=== PATIENT | female | born 1970 | race Caucasian/White ===

== ENCOUNTER 2020-03-01 08:17 | Outpatient (REF) | payer OTHER, SELFPAY ==
--- NOTE | 2020-03-01 | US_ITS ---
EXAMINATION: US ABDOMEN COMPLETE CLINICAL INFORMATION: Gallstones without cholecystitis. Elevated LFTs. COMPARISON: None. TECHNIQUE: Real-time imaging of the abdominal viscera. FINDINGS: PANCREAS: Normal. ABDOMINAL AORTA: The visualized proximal segment is normal in caliber. INFERIOR VENA CAVA: Visualized portions are normal. LIVER: There is diffuse increased liver parenchymal echogenicity, consistent with hepatic steatosis. The liver is normal in contour. The liver is slightly enlarged, right lobe measuring 19 cm the left lobe measuring 12 cm in length. No focal liver lesion. No biliary ductal dilatation. GALLBLADDER: Normal. The gallbladder is physiologically distended without evidence of stones, sludge, polyps, wall thickening or pericholecystic fluid. COMMON BILE DUCT: Normal in caliber measuring 0.3 cm in diameter. RIGHT KIDNEY: No hydronephrosis. No renal calculi or focal parenchymal lesions. The kidney measures 10.4 cm in maximum dimension. LEFT KIDNEY: No hydronephrosis. No renal calculi or focal parenchymal lesions. The kidney measures 9.6 cm in maximum dimension. SPLEEN: Normal. The spleen measures 9.4 cm in maximum dimension. FREE FLUID: None. IMPRESSION: Slightly enlarged echogenic liver probably representing fatty infiltration. Normal-appearing gallbladder. No gallstones seen.
== END 2020-03-01 08:18 | disposition home or self-care (01) ==
LOC: HO.US 08:17
PROVIDERS: PCP Internal Medicine; Visit Provider Internal Medicine
DX: K80.20 Calculus of gallbladder without cholecystitis without obstruction (principal); R94.5 Abnormal results of liver function studies
CPT/HCPCS: 76700

== ENCOUNTER 2020-03-26 09:09 | Emergency (ER) | payer OTHER, SELFPAY ==
[2020-03-26 09:15] VITALS: PULSE 88; RESP 18; TEMP 37.6; O2SAT 99; BMI 26.5
--- NOTE | 2020-03-26 09:30 | ECG_ITS ---
Test Reason : NEAR SYNCOPE Blood Pressure : / mmHG Vent. Rate : 078 BPM Atrial Rate : 078 BPM P-R Int : 136 ms QRS Dur : 090 ms QT Int : 394 ms P-R-T Axes : 057 043 036 degrees QTc Int : 449 ms Normal sinus rhythm Normal ECG When compared with ECG of 30-JUL-2019 08:15, No significant change was found Referred By: Batsheva Fragoso Electronically Signed By:DIMPLE DAHL MD
--- NOTE | 2020-03-26 09:33 | ED_ITS ---
HPI - GI Bleed General Chief complaint: GI Bleed Stated complaint: RECTUM BLEEDING Time Seen by Provider: 03/26/20 09:19 Source: patient Mode of arrival: ambulatory Limitations: no limitations History of Present Illness HPI Narrative: 50-year-old female with a past medical history of thyroidectomy, fatty liver here with rectal bleeding since this morning. The patient tells me she moved her bowels twice this morning and it was diarrhea with bright red blood. After the 2nd episode she went to stand up but felt lightheaded and dizzy and sat back down. She tells me she has several seconds where she saw black but did not fall off the toilet. No associated palpitations, chest pain, shortness of breath or headache. No abdominal pain or vomiting. The patient drinks 2 quarter pints of Bacardi and several beers every day. Last drink yesterday. No additional substance use. No family h/o colon cancer. Has not had a colonoscopy. MD complaint: gross hematochezia Onset (ago): hour(s) Pain Consistency: intermittent Severity: mild Relieving factors: none Exacerbating factors: bowel movement Associated symptoms: denies other symptoms Treatments Prior to Arrival: none Related Data Allergies Allergy/AdvReac Type Severity Reaction Status Date / Time No Known Allergies Allergy Unverified 02/10/20 16:08 [No Known Allergies*] Review of Systems Review of Systems: Yes all other systems are reviewed and are negative Constitutional: Constitutional: Reports no additional constitutional complaints, Denies body ache(s), Denies chills, Denies fever(s), Denies headache(s) and Denies weakness Eyes: Eyes: Reports no additional eye complaints and Denies change in vision ENT: Reports system reviewed and no additional complaints, except as documented, Denies dizziness, Denies headache(s), Denies nasal congestion, Denies nasal discharge and Denies neck pain Cardiovascular: Cardiovascular: Reports no additional cardiovascular complaints, Denies chest pain, Denies leg edema and Denies dyspnea Respiratory: Respiratory: Reports no additional respiratory complaints, Denies cough and Denies dyspnea Gastrointestinal: Gastrointestinal: Reports no additional gastrointestinal complaints, Denies abdominal pain, Reports hematochezia, Denies change in bowel habits, Denies coffee ground emesis, Denies diarrhea, Denies nausea and Denies vomiting Genitourinary: Genitourinary: Reports no additional female genitourinary complaints and Denies urinary incontinence Musculoskeletal: Musculoskeletal: Reports no additional musculoskeletal complaints, Denies back pain, Denies arthralgias, Denies joint swelling, Denies neck pain, Denies numbness and Denies tingling Integumentary/Breasts: Skin/Breast: Reports system reviewed and no additional complaints, except as docu and Denies rash Neurologic: Reports system reviewed and no additional complaints, except as documented, Denies Abnormal speech present, Denies dizziness, Denies headache(s), Denies numbness, Denies tingling and Denies weakness [facility] Past Medical History Attestation statement: The following information was validated with the patient. Source: obtained from family and nursing notes reviewed Medical History Alcohol abuse Bleeding hemorrhoid Enlarged liver Surgical History History of thyroidectomy Previous section Social History Social History Alcohol intake: current Alcohol intake frequency: 0-2 drinks per day Smoking Status: Former smoker Use of substances other than those prescribed or required for medical reasons: No Advance Directives: No Advance Directives Information Provided: No Physical Exam Vital Signs: Vital Signs: Vital Signs Temp Pulse Resp BP Pulse Ox 03/26/20 13:36 80 132/82 98 03/26/20 09:55 83 127/79 03/26/20 09:53 82 116/72 03/26/20 09:15 99.6 F 88 18 99 Body Mass Index 26.5 Const: General: cooperative, healthy appearing, comfortable and no acute distress Orientation/consciousness: patient oriented x3 Limitations: no limitations HENMT: Head: Yes normal to inspection Ears: hearing grossly normal bilaterally General nose exam: Normal external nose present Face and sinus: Yes normal facial exam Mouth: Normal oral and palatal mucosa present Throat: Yes posterior oropharynx normal Eyes: General: appearance normal, both eyes and all related structures Pupils: Equal, round and reactive pupils present Neck: Neck: Yes normal visual inspection Chest: Chest palpation & inspection: normal inspection of the chest Resp: Effort & Inspection: normal respiratory effort Auscultation: clear to auscultation bilaterally Cardio: Rate: regular rate Rhythm: regular rhythm Peripheral pulses: Peripheral pulses 2+ throughout GI: Inspection: Yes normal to inspection Palpation (GI): Soft to palpation and nontender Auscultation: normal bowel sounds Rectal Exam - Female: visual inspection normal, normal sphincter tone and heme positive stool (Light brown stool, heme positive ) Back/Spine/Pelvis: Thoracic/Lumbar Spine: thoracic and lumbar spine normal to inspection Skin: General skin exam: no rashes or lesions noted Neuro: General: patient oriented x3, no focal motor deficits and normal sensation to monofilament Cranial nerves: Yes Equal, round and reactive pupils present Cognition (Neuro): normal cognition Speech: No Abnormal spe ech present Gait exam (Neuro): Normal gait present Motor exam (neuro): 5/5 motor strength present throughout Extrem: Other: Mild bilateral hand tremor General: Yes normal to inspection Course Course Course Narrative: 50 yo female here with 2 episodes of rectal bleeding, near syncopal episode while on the toilet. No abdominal pain on exam. brown stool on rectal however heme positive. WIll send occult to lab, check additional labs, UA/ur , EKG, orthostatics. Will give PO ativan for mild hand tremor. 1145- Hemoglobin stable. Patient has had no additional episodes here. Her orthostatics were negative. Her occult stool was positive. Labs show elevated AST and ALT consistent with liver disease secondary to alcohol use. She also has elevated INR which is likely secondary to this. Elevated lactic acid which i s likely secondary to alcohol level. Will give NSB and re-check. Will discuss with GI. 1200-Spoke to Dr Vo who recommended outpatient f/u with GI. Repeat lactic acid improved. Monitored in the ED for >3 hrs with no additional episodes. Patient tells me she does not want detox and has detoxed before at home with no issues. We reviewed how this can be dangerous and it would be safest to detox in a facility with medical personnel. Patient declined. Reviewed worrisome signs and symptoms of when to return to the emergency department. Comfortable discharge home. MDM - GI Bleed MDM Narrative Medical decision making narrative: Considered GI bleed, diverticulitis, hemorrhoids, liver disease, ischemic colitis Less likely acute GI bleed with no continued episodes here, rectal exam negative for chintan blood or black stool. Less likely diverticulitis or ischemic colitis with no abdominal pain, vomiting. Elevated AST/ALT likely from alcohol use. Medical Records Attestation: I reviewed the patient's medical records. Lab Data Attestation: I reviewed the patient's lab results. Result diagrams: 03/26/20 10:10 03/26/20 10:10 Labs: Lab Results 03/26/20 03/26/20 03/26/20 Range/Units 10:10 10:10 10:10 WBC 5.6 (4.8-10.8) X10*3/uL RBC 3.56 L (4.20-5.50) X10*6/uL Hgb 11.9 L (12.0-16.0) g/dl Hct 35.1 L (37-47) % MCV 98.6 H (80-98) fL MCH 33.4 H (27.0-33.0) pg MCHC 33.9 (31.0-35.0) g/dl RDW 13.9 (11.0-16.0) % Plt Count 91 L (160-400) X10*3/uL MPV 10.2 (9.4-12.3) fL Immature Gran % (Auto) 0.2 (0.0-0.4) % Neut % (Auto) 35.8 L (45-73) % Lymph % (Auto) 48.6 H (20-40) % Edd[place] % (Auto) 13.3 H (2-11) % Eos % (Auto) 1.4 (0-4) % Baso % (Auto) 0.7 (0-2) % Lymph # (Auto) 2.7 (1.2-4.9) X10*3/uL [place] # (Auto) 0.7 (0.1-1.2) X10*3/uL Eos # (Auto) 0.1 (0.0-0.4) X10*3/uL Baso # (Auto) 0.0 (0.0-0.2) X10*3/uL Abs Immat Gran (auto) 0.01 (0.00-0.03) X10*3/uL Absolute Neuts (auto) 2.0 (2.0-8.3) X10*3/uL Absolute Nucleated RBC 0.000 (0.0-0.012) X10*3/uL Nucleated RBC % (auto) 0.0 (0.0-0.2) /100WBC PT 16.2 H (10.8-13.0) SEC INR 1.4 H (0.9-1.1) Sodium 144 (135-145) mmol/L Potassium 3.8 (3.3-5.1) mmol/l Chloride 106 (96-108) mmol/L Carbon Dioxide 27 (22-29) mmol/L Anion Gap 15 (12-20) BUN 15 (9-16) mg/dL Creatinine 0.65 (0.5-1.4) mg/dL Estim Creat Clear Calc 91.0 Estimated GFR > 60 Random Glucose 120 H (60-115) mg/dL Lactic Acid (0.5-2.0) mmol/L Lactic Acid Fup @ 2Hr (0.5-2.0) mmol/L Calcium 8.2 L (8.4-10.2) mg/dL Magnesium 1.5 L (1.6-2.6) mg/dL Total Bilirubin 0.3 (0.0-1.0) mg/dL Direct Bilirubin 0.2 (0.0-0.5) mg/dL AST 276 H (5-31) U/L ALT 182 H (0-31) U/L Alkaline Phosphatase 108 (39-117) U/L Total Protein 5.9 L (6.5-8.0) g/dL Albumin 3.3 L (3.5-5.0) g/dL Urine Color Urine Appearance Urine pH (5.0-8.0) Ur Specific [place] (1.005-1.025) Urine Protein (NEG-TRACE) MG/DL Urine Glucose (UA) (NEG) MG/DL Urine Ketones (NEG) MG/DL Urine Blood (NEG) Urine Nitrite (NEG) Ur Leukocyte Esterase (NEG) Urine Test (NEGATIVE) Stool Occult Blood (NEG) Ethyl Alcohol mg/dL 03/26/20 03/26/20 03/26/20 Range/Units 10:10 10:10 10:10 WBC (4.8-10.8) X10*3/uL RBC (4.20-5.50) X10*6/uL Hgb (12.0-16.0) g/dl Hct (37-47) % MCV (80-98) fL MCH (27.0-33.0) pg MCHC (31.0-35.0) g/dl RDW (11.0-16.0) % Plt Count (160-400) X10*3/uL MPV (9.4-12.3) fL Immature Gran % (Auto) (0.0-0.4) % Neut % (Auto) (45-73) % Lymph % (Auto) (20-40) % [place] % (Auto) (2-11) % Eos % (Auto) (0-4) % Baso % (Auto) (0-2) % Lymph # (Auto) (1.2-4.9) X10*3/uL [place] # (Auto) (0.1-1.2) X10*3/uL Eos # (Auto) (0.0-0.4) X10*3/uL Baso # (Auto) (0.0-0.2) X10*3/uL Abs Immat Gran (auto) (0.00-0.03) X10*3/uL Absolute Neuts (auto) (2.0-8.3) X10*3/uL Absolute Nucleated RBC (0.0-0.012) X10*3/uL Nucleated RBC % (auto) (0.0-0.2) /100WBC PT (10.8-13.0) SEC INR (0.9-1.1) Sodium (135-145) mmol/L Potassium (3.3-5.1) mmol/l Chloride (96-108) mmol/L Carbon Dioxide (22-29) mmol/L Anion Gap (12-20) BUN (9-16) mg/dL Creatinine (0.5-1.4) mg/dL Estim Creat Clear Calc Estimated GFR Random Glucose (60-115) mg/dL Lactic Acid 2.3 H* (0.5-2.0) mmol/L Lactic Acid Fup @ 2Hr (0.5-2.0) mmol/L Calcium (8.4-10.2) mg/dL Magnesium (1.6-2.6) mg/dL Total Bilirubin (0.0-1.0) mg/dL Direct Bilirubin (0.0-0.5) mg/dL AST (5-31) U/L ALT (0-31) U/L Alkaline Phosphatase (39-117) U/L Total Protein (6.5-8.0) g/dL Albumin (3.5-5.0) g/dL Urine Color Urine Appearance Urine pH (5.0-8.0) Ur Specific [place] (1.005-1.025) Urine Protein (NEG-TRACE) MG/DL Urine Glucose (UA) (NEG) MG/DL Urine Ketones (NEG) MG/DL Urine Blood (NEG) Urine Nitrite (NEG) Ur Leukocyte Esterase (NEG) Urine Test (NEGATIVE) Stool Occult Blood POS (NEG) Ethyl Alcohol < 10 mg/dL 03/26/20 03/26/20 Range/Units 10:24 12:54 WBC (4.8-10.8) X10*3/uL RBC (4.20-5.50) X10*6/uL Hgb (12.0-16.0) g/dl Hct (37-47) % MCV (80-98) fL MCH (27.0-33.0) pg MCHC (31.0-35.0) g/dl RDW (11.0-16.0) % Plt Count (160-400) X10*3/uL MPV (9.4-12.3) fL Immature Gran % (Auto) (0.0-0.4) % Neut % (Auto) (45-73) % Lymph % (Auto) (20-40) % [place] % (Auto) (2-11) % Eos % (Auto) (0-4) % Baso % (Auto) (0-2) % Lymph # (Auto) (1.2-4.9) X10*3/uL [place] # (Auto) (0.1-1.2) X10*3/uL Eos # (Auto) (0.0-0.4) X10*3/uL Baso # (Auto) (0.0-0.2) X10*3/uL Abs Immat Gran (auto) (0.00-0.03) X10*3/uL Absolute Neuts (auto) (2.0-8.3) X10*3/uL Absolute Nucleated RBC (0.0-0.012) X10*3/uL Nucleated RBC % (auto) (0.0-0.2) /100WBC PT (10.8-13.0) SEC INR (0.9-1.1) Sodium (135-145) mmol/L Potassium (3.3-5.1) mmol/l Chloride (96-108) mmol/L Carbon Dioxide (22-29) mmol/L Anion Gap (12-20) BUN (9-16) mg/dL Creatinine (0.5-1.4) mg/dL Estim Creat Clear Calc Estimated GFR Random Glucose (60-115) mg/dL Lactic Acid (0.5-2.0) mmol/L Lactic Acid Fup @ 2Hr 1.6 (0.5-2.0) mmol/L Calcium (8.4-10.2) mg/dL Magnesium (1.6-2.6) mg/dL Total Bilirubin (0.0-1.0) mg/dL Direct Bilirubin (0.0-0.5) mg/dL AST (5-31) U/L ALT (0-31) U/L Alkaline Phosphatase (39-117) U/L Total Protein (6.5-8.0) g/dL Albumin (3.5-5.0) g/dL Urine Color YELLOW Urine Appearance CLEAR Urine pH 6.0 (5.0-8.0) Ur Specific [place] 1.020 (1.005-1.025) Urine Protein NEG (NEG-TRACE) MG/DL Urine Glucose (UA) NEG (NEG) MG/DL Urine Ketones NEG (NEG) MG/DL Urine Blood NEG (NEG) Urine Nitrite NEG (NEG) Ur Leukocyte Esterase NEG (NEG) Urine Test NEGATIVE (NEGATIVE) Stool Occult Blood (NEG) Ethyl Alcohol mg/dL ECG Data Attestation: I personally reviewed and interpreted this ECG as follows: ECG interpretation date: 03/26/20 ECG interpretation time: 09:50 Interpretation: Normal sinus rhythm with a rate of 78, normal [place], normal QRS, normal QT, normal ST segment Discharge Plan Discharge Clinical Impression: Rectal bleed, Elevated liver enzymes Patient Disposition: Home, Self-Care Instructions: Rectal Bleeding (ED) Additional Instructions: please stop drinking alcohol. If at any point you feel like you need help with this please return to the emergency department. Call the wash rack operator tomorrow morning for an appointment. Your blood work looks normal today outside of your liver enzymes which are mildly elevated and are likely from your alcohol use. If you should develop additional episodes please return. Referrals: Man Vo [Physician] - 2 days Interventions: ED Discharge Assessment Last Done: 03/26/20 13:37 Discharge Date/Time: 03/26/20 13:51
[2020-03-26 09:53] VITALS: BP 111/63; BP 116/72; PULSE 78; PULSE 82
[2020-03-26 09:55] VITALS: BP 127/79; PULSE 83
[2020-03-26] MEDS: LORazepam 1 MG TABLET PO (09:59)
[2020-03-26 10:19] LABS: MANUAL DIFF FLAG NO
[2020-03-26 10:20] LABS: Basophils Percent Auto 0.7 % (0-2); Eosinophils Absolute Auto 0.1 X10*3/uL (0.0-0.4); Eosinophils Percent Auto 1.4 % (0-4); Hematocrit 35.1 % (37-47); Hemoglobin 11.9 g/dl (12.0-16.0); Imm Gran Abs Auto 0.01 X10*3/uL (0.00-0.03); Imm Gran Pct Auto 0.2 % (0.0-0.4); Lymphocytes Absolute Auto 2.7 X10*3/uL (1.2-4.9); Lymphocytes Percent Auto 48.6 % (20-40); Mean Corpuscular HGB Conc 33.9 g/dl (31.0-35.0); Mean Corpuscular Hemoglobin 33.4 pg (27.0-33.0); Mean Corpuscular Volume 98.6 fL (80-98); Mean Platelet Volume 10.2 fL (9.4-12.3); Monocytes Absolute Auto 0.7 X10*3/uL (0.1-1.2); Monocytes Percent Auto 13.3 % (2-11); Neutrophils Percent Auto 35.8 % (45-73); Red Blood Count 3.56 X10*6/uL (4.20-5.50); Red Cell Distribution Width 13.9 % (11.0-16.0); White Blood Count 5.6 X10*3/uL (4.8-10.8)
[2020-03-26 10:22] LABS: OBS Int Ctl Valid YES; OBS1 POS (NEG)
[2020-03-26 10:29] LABS: INTERNATIONAL NORM RATIO 1.4 (0.9-1.1); Prothrombin Time 16.2 SEC (10.8-13.0)
[2020-03-26 10:44] LABS: Ethanol < 10 mg/dL
[2020-03-26 10:46] LABS: Platelet Count 91 X10*3/uL (160-400)
[2020-03-26 10:50] LABS: Alanine Aminotransferase 182 U/L (0-31); Albumin Level 3.3 g/dL (3.5-5.0); Alkaline Phosphatase 108 U/L (39-117); Anion Gap 15 (12-20); Aspartate Amino Transferase 276 U/L (5-31); Bilirubin Direct 0.2 mg/dL (0.0-0.5); Bilirubin Total 0.3 mg/dL (0.0-1.0); Blood Urea Nitrogen 15 mg/dL (9-16); Calcium 8.2 mg/dL (8.4-10.2); Carbon Dioxide 27 mmol/L (22-29); Chloride 106 mmol/L (96-108); Estimated Glomerular Filt Rate > 60; Glucose Random 120 mg/dL (60-115); Magnesium 1.5 mg/dL (1.6-2.6); Potassium 3.8 mmol/l (3.3-5.1); Sodium 144 mmol/L (135-145); Total Protein 5.9 g/dL (6.5-8.0)
[2020-03-26 10:53] LABS: Lactic Acid 2.3 mmol/L (0.5-2.0)
[2020-03-26 11:14] LABS: Glucose Urine UA NEG (NEG); Leukocyte Esterase Urine NEG (NEG); Nitrite Urine NEG (NEG); Urine Blood NEG (NEG); Urine Ketones NEG (NEG); Urine Protein NEG (NEG-TRACE)
[2020-03-26] MEDS: 0.9 % Sodium Chloride 1,000 ML 999 ML IV (11:16)
[2020-03-26] MEDS: Magnesium Sulfate/D5W 1 GM/100 ML PIGGYBACK IV (11:16)
[2020-03-26 11:17] LABS: Appearance Urine CLEAR; Color Urine YELLOW
[2020-03-26 11:18] LABS: UPreg QC Valid YES; Urine Pregnancy NEGATIVE (NEGATIVE)
[2020-03-26 12:18] LABS: Reflex Lactate? Lactic Acid Added
[2020-03-26 13:24] LABS: ~Lactic Acid-LAB USE ONLY 1.6 mmol/L (0.5-2.0)
[2020-03-26 13:36] VITALS: BP 132/82; PULSE 80; O2SAT 98
== END 2020-03-26 13:51 | disposition home or self-care (01) ==
PROVIDERS: Nurse Practitioner Family; Emergency Provider Emergency Medicine; PCP Internal Medicine
DX: K62.5 Hemorrhage of anus and rectum (principal); R79.89 Other specified abnormal findings of blood chemistry; Z87.891 Personal history of nicotine dependence
CPT/HCPCS: 36415; 80048; 80076; 80320; 81003; 81025; 82272; 83605; 83735; 85025; 85610; 93005; 96361; 96374; 96375; 99284; J3475

== ENCOUNTER 2020-04-08 07:06 | Emergency (ER) | payer OTHER, SELFPAY ==
[2020-04-08 07:26] VITALS: BP 122/70; PULSE 72; RESP 18; TEMP 37.1; O2SAT 97; BMI 26.6
--- NOTE | 2020-04-08 07:26 | ED.CHESTPAIN ---
HPI - Chest Pain General Chief Complaint: Chest Pain Stated Complaint: chest pain Time Seen by Provider: 04/08/20 07:26 Source: patient Mode of arrival: ambulatory Limitations: no limitations History of Present Illness HPI narrative: This is a 50-year-old female otherwise healthy presented with 3 days of constant right-sided chest pain, patient describes the pain as localized to the right upper chest wall, with no radiation, dull, 5/10, constant, pain has been worsening over the last 3 days and today is the worst, pain is worsening by movement of her right arm and taking a deep breath, nothing relieves the pain, no other associated symptoms. Patient never had similar pain in the past. Patient declined any recent travel, no recent prolonged immobilization, no lower extremity swelling or tenderness, no history of DVT/PE. Related Data Allergies Allergy/AdvReac Type Severity Reaction Status Date / Time No Known Allergies Allergy Unverified 02/10/20 16:08 [No Known Allergies*] Review of Systems Review of Systems: All other systems are reviewed and are negative Constitutional: Reports as per HPI and Reports no additional constitutional complaints Eyes: Reports as per HPI and Reports no additional eye complaints Reports system reviewed and no additional complaints, except as documented Cardiovascular: Reports as per HPI and Reports no additional cardiovascular complaints Respiratory: Reports as per HPI and Reports no additional respiratory complaints Gastrointestinal: Reports as per HPI and Reports no additional gastrointestinal complaints Genitourinary: Reports no additional female genitourinary complaints Musculoskeletal: Reports no additional musculoskeletal complaints Skin/Breast: Reports system reviewed and no additional complaints, except as docu Psychiatric: Reports no additional psychiatric complaints Endocrine: Reports no additional endocrine complaints Hematologic/Lymphatic: Reports no additional hematologic/lymphatic complaints Allergic/Immunologic: Reports no additional allergic/immunologic complaints Reports system reviewed and no additional complaints, except as documented and Reports Abnormal speech present [facility] Past Medical History Medical History Alcohol abuse Bleeding hemorrhoid Enlarged liver Surgical History History of thyroidectomy Previous section Social History Social History Alcohol intake: current Alcohol intake frequency: 0-2 drinks per day Smoking Status: Former smoker Advance Directives: No Advance Directives Information Provided: No Physical Exam Vital Signs: Vital Signs: Last Vital Signs Temp 98.8 F 04/08/20 07:26 Pulse 72 04/08/20 08:18 Resp 14 04/08/20 08:18 BP 115/84 04/08/20 08:18 Pulse Ox 98 04/08/20 08:18 Body Mass Index 26.6 Vital signs have been reviewed as normal and appeared to be correct. Blood pressure normal. Heart rate normal. Respiration rate normal. Temperature normal. Oxygen saturation normal. Appearance: Alert. Oriented X3. No acute distress. Head: Normal external exam. Normocephalic. Atraumatic. No Miranda signs noted. No raccoon eyes noted Eyes: PERRLA. EOMI. Conjunctiva and sclera normal. Eyelids normal. ENT: EAC normal. TM's Normal. Pharynx normal. Uvula midline. Moist mucous membranes. No trismus noted. No drooling noted. No muffled voice noted. Neck: Normal inspection. Neck supple. FROM. No adenopathy. Thyroid Normal. No meningeal signs. No neck mass noted. CVS: Normal heart rate and rhythm. Heart sound normal. No murmurs noted. Pulses normal throughout. Respiratory: No respiratory distress. Painless inspiration. Breath sounds normal. No wheezes/rales/rhonchi noted. Chest wall tenderness localized to the right upper chest wall, pain is worsening when patient turns her head to the left side, or raising right arm above her head, positive reproducible tenderness to the right side chest area. No accessory muscle usage noted or decreased air movement noted. Abdomen: Soft and nontender. Bowel sounds normal in all 4 quadrants. No distention noted. No organomegaly noted. No visible injury noted. Back: No CVA tenderness. Full range of motion noted. Skin: Skin warm and dry. Normal skin color. Normal skin turgor. No rashes/lesions/lacerations noted. Extremities: No lower extremity edema. Extremities exhibit normal range of motion. Extremities nontender. Neuro: Oriented X 3. No motor deficit. No sensory deficit. Reflexes normal. Course Course Course Narrative: 50-year-old female presented with 3 days of constant right-sided chest pain, physical exam consistent with likely muscular pain, will check labs including cardiac enzymes/a D-dimer/chest x-ray, will reassess. MDM - Chest Pain MDM Narrative Medical decision making narrative: Assessment and plan. 50-year-old female with HEART SCORE OF 1 (H), PRESENTED WITH RIGHT-SIDED CHEST PAIN, patient has unremarkable D-dimer with no risk factors for PE/DVT. Unremarkable EKG and negative troponin. Pain has been constant for 3 days. Patient's right-sided pain is muscular related. Lab Data Attestation: I reviewed the patient's lab results. Result diagrams: 04/08/20 07:55 04/08/20 07:55 Labs: Lab Results 04/08/20 04/08/20 04/08/20 Range/Units 07:54 07:54 07:55 WBC (4.8-10.8) X10*3/uL RBC (4.20-5.50) X10*6/uL Hgb (12.0-16.0) g/dl Hct (37-47) % MCV (80-98) fL MCH (27.0-33.0) pg MCHC (31.0-35.0) g/dl RDW (11.0-16.0) % Plt Count (160-400) X10*3/uL MPV (9.4-12.3) fL Immature Gran % (Auto) (0.0-0.4) % Neut % (Auto) (45-73) % Lymph % (Auto) (20-40) % [place] % (Auto) (2-11) % Eos % (Auto) (0-4) % Baso % (Auto) (0-2) % Lymph # (Auto) (1.2-4.9) X10*3/uL [place] # (Auto) (0.1-1.2) X10*3/uL Eos # (Auto) (0.0-0.4) X10*3/uL Baso # (Auto) (0.0-0.2) X10*3/uL Abs Immat Gran (auto) (0.00-0.03) X10*3/uL Absolute Neuts (auto) (2.0-8.3) X10*3/uL Absolute Nucleated RBC (0.0-0.012) X10*3/uL Nucleated RBC % (auto) (0.0-0.2) /100WBC D-Dimer < 200 NG/ML Sodium 138 (135-145) mmol/L Potassium 4.6 D (3.3-5.1) mmol/l Chloride 104 (96-108) mmol/L Carbon Dioxide 25 (22-29) mmol/L Anion Gap 14 (12-20) BUN 18 H (9-16) mg/dL Creatinine 0.60 (0.5-1.4) mg/dL Estim Creat Clear Calc 98.9 Estimated GFR > 60 Random Glucose 91 (60-115) mg/dL Calcium 8.5 (8.4-10.2) mg/dL Total Bilirubin 0.5 (0.0-1.0) mg/dL Direct Bilirubin 0.2 (0.0-0.5) mg/dL AST 140 H (5-31) U/L ALT 124 H (0-31) U/L Alkaline Phosphatase 96 (39-117) U/L Troponin I High Sens < 3.5 (<3.5-17.0) ng/L B-Natriuretic Peptide 53 (<100) pg/mL Total Protein 6.5 (6.5-8.0) g/dL Albumin 3.7 (3.5-5.0) g/dL Lipase 37 (8-78) U/L // Range/Units 07:55 WBC 5.9 (4.8-10.8) X10*3/uL RBC 3.69 L (4.20-5.50) X10*6/uL Hgb 12.5 (12.0-16.0) g/dl Hct 36.6 L (37-47) % MCV 99.2 H (80-98) fL MCH 33.9 H (27.0-33.0) pg MCHC 34.2 (31.0-35.0) g/dl RDW 14.2 (11.0-16.0) % Plt Count 123 L D (160-400) X10*3/uL MPV 9.5 (9.4-12.3) fL Immature Gran % (Auto) 0.3 (0.0-0.4) % Neut % (Auto) 36.8 L (45-73) % Lymph % (Auto) 50.3 H (20-40) % [place] % (Auto) 9.9 (2-11) % Eos % (Auto) 1.9 (0-4) % Baso % (Auto) 0.8 (0-2) % Lymph # (Auto) 3.0 (1.2-4.9) X10*3/uL [place] # (Auto) 0.6 (0.1-1.2) X10*3/uL Eos # (Auto) 0.1 (0.0-0.4) X10*3/uL Baso # (Auto) 0.1 (0.0-0.2) X10*3/uL Abs Immat Gran (auto) 0.02 (0.00-0.03) X10*3/uL Absolute Neuts (auto) 2.2 (2.0-8.3) X10*3/uL Absolute Nucleated RBC 0.000 (0.0-0.012) X10*3/uL Nucleated RBC % (auto) 0.0 (0.0-0.2) /100WBC D-Dimer NG/ML Sodium (135-145) mmol/L Potassium (3.3-5.1) mmol/l Chloride (96-108) mmol/L Carbon Dioxide (22-29) mmol/L Anion Gap (12-20) BUN (9-16) mg/dL Creatinine (0.5-1.4) mg/dL Estim Creat Clear Calc Estimated GFR Random Glucose (60-115) mg/dL Calcium (8.4-10.2) mg/dL Total Bilirubin (0.0-1.0) mg/dL Direct Bilirubin (0.0-0.5) mg/dL AST (5-31) U/L ALT (0-31) U/L Alkaline Phosphatase (39-117) U/L Troponin I High Sens (<3.5-17.0) ng/L B-Natriuretic Peptide (<100) pg/mL Total Protein (6.5-8.0) g/dL Albumin (3.5-5.0) g/dL Lipase (8-78) U/L Imaging Data Chest x-ray: Radiologist's impression: No acute pathology. ECG Data ECG #1: Interpretation: Normal sinus rhythm at 75 beats per minutes, normal interval, normal axis, no ST-T changes. Discharge Plan Discharge Clinical Impression: Acute chest wall pain Patient Disposition: Home, Self-Care Instructions: Chest Wall Pain (ED) Referrals: Hilario Tejeda MD [Primary Care Provider] - 2 days
--- NOTE | 2020-04-08 07:27 | ECG_ITS ---
Test Reason : CP Blood Pressure : / mmHG Vent. Rate : 075 BPM Atrial Rate : 075 BPM P-R Int : 136 ms QRS Dur : 088 ms QT Int : 410 ms P-R-T Axes : 061 042 046 degrees QTc Int : 457 ms Normal sinus rhythm Normal ECG When compared with ECG of 26-MAR-2020 09:50, No significant change was found Referred By: Camila Montelongo Electronically Signed By:DIMPLE DAHL MD
--- NOTE | 2020-04-08 07:27 | XR_ITS ---
EXAMINATION: XR CHEST CLINICAL INFORMATION: Chest pain COMPARISON: Chest x-ray 01/25/2020 TECHNIQUE: Frontal view of the chest was obtained. FINDINGS: Cardiac silhouette is normal in size. The lungs are well aerated. No lobar consolidation. No pleural effusion or pneumothorax. No gross osseous abnormality. XR/XR chest 1V IMPRESSION: Stable examination demonstrating no acute pulmonary pathology.
[2020-04-08 07:59] LABS: MANUAL DIFF FLAG NO
[2020-04-08] MEDS: Ibuprofen 400 MG TABLET PO (08:00)
[2020-04-08 08:02] LABS: Basophils Absolute Auto 0.1 X10*3/uL (0.0-0.2); Basophils Percent Auto 0.8 % (0-2); Eosinophils Absolute Auto 0.1 X10*3/uL (0.0-0.4); Eosinophils Percent Auto 1.9 % (0-4); Hematocrit 36.6 % (37-47); Hemoglobin 12.5 g/dl (12.0-16.0); Imm Gran Abs Auto 0.02 X10*3/uL (0.00-0.03); Imm Gran Pct Auto 0.3 % (0.0-0.4); Lymphocytes Percent Auto 50.3 % (20-40); Mean Corpuscular HGB Conc 34.2 g/dl (31.0-35.0); Mean Corpuscular Hemoglobin 33.9 pg (27.0-33.0); Mean Corpuscular Volume 99.2 fL (80-98); Mean Platelet Volume 9.5 fL (9.4-12.3); Monocytes Absolute Auto 0.6 X10*3/uL (0.1-1.2); Monocytes Percent Auto 9.9 % (2-11); Neutrophils Absolute Auto 2.2 X10*3/uL (2.0-8.3); Neutrophils Percent Auto 36.8 % (45-73); Platelet Count 123 X10*3/uL (160-400); Red Blood Count 3.69 X10*6/uL (4.20-5.50); Red Cell Distribution Width 14.2 % (11.0-16.0); White Blood Count 5.9 X10*3/uL (4.8-10.8)
[2020-04-08 08:17] LABS: D Dimer < 200 NG/ML
[2020-04-08 08:18] VITALS: BP 115/84; PULSE 72; RESP 14; O2SAT 98
[2020-04-08 08:25] LABS: Alanine Aminotransferase 124 U/L (0-31); Albumin Level 3.7 g/dL (3.5-5.0); Alkaline Phosphatase 96 U/L (39-117); Anion Gap 14 (12-20); Aspartate Amino Transferase 140 U/L (5-31); Bilirubin Direct 0.2 mg/dL (0.0-0.5); Bilirubin Total 0.5 mg/dL (0.0-1.0); Blood Urea Nitrogen 18 mg/dL (9-16); Calcium 8.5 mg/dL (8.4-10.2); Carbon Dioxide 25 mmol/L (22-29); Chloride 104 mmol/L (96-108); Creatinine Clr Calc Pharmacy 98.9; Estimated Glomerular Filt Rate > 60; Glucose Random 91 mg/dL (60-115); Lipase 37 U/L (8-78); Potassium 4.6 mmol/l (3.3-5.1); Sodium 138 mmol/L (135-145); Total Protein 6.5 g/dL (6.5-8.0)
[2020-04-08 08:31] LABS: B Type Natriuretic Peptide 53 pg/mL (<100); Troponin-I High Sensitivity < 3.5 ng/L (<3.5-17.0)
== END 2020-04-08 09:35 | disposition home or self-care (01) ==
PROVIDERS: Emergency Provider Emergency Medicine; PCP Internal Medicine
DX: R07.9 Chest pain, unspecified (principal); Z87.891 Personal history of nicotine dependence
CPT/HCPCS: 36415; 71045; 80048; 80076; 83690; 83880; 84484; 85025; 85379; 93005; 99284

== ENCOUNTER 2020-05-08 09:05 | Outpatient (REF) | payer OTHER, SELFPAY ==
--- NOTE | 2020-05-08 09:12 | CT_ITS ---
EXAMINATION: CT CHEST WITHOUT CONTRAST CLINICAL INFORMATION: Right lower lobe nodule on CT. COMPARISON: Abnormal chest x-ray 04/08/2020. CT abdomen and pelvis 06/02/2019. TECHNIQUE: Multidetector volumetric CT imaging of the chest was done. Axial MIP volume rendering provided. Sagittal and coronal reformatted images were obtained. This CT examination was performed using dose optimization techniques as appropriate, variously including the following: *Automated exposure control *Adjustment of mA and/or kV according to patient size (this includes techniques or standardized protocols for targeted exams where dose is matched to indication/reason for exam; i.e. extremities or head) *Use of iterative reconstruction technique DLP: 215 mGy-cm FINDINGS: ONLINE MERCHANDISER: Unremarkable chest exam. LUNGS: The lungs are well expanded without any acute pneumonic process. There is a 2 mm calcified nodule in the anterior segment right upper lobe, axial image 127/6. There is a 6 mm nodule with central calcification right lung base image 301/6, stable. No additional lung nodules seen. MEDIASTINUM: The thyroid lobes are stable. The central trachea and the bronchi are widely patent. The heart size and the great vessels are normal caliber. Small shotty lymph nodes are seen in the mediastinum. No pericardial effusion seen. PLEURA: There is no pleural effusion. No pleural mass or thickening. AXILLA: No lymphadenopathy. UPPER ABDOMEN: Visualized liver, spleen, pancreas, and adrenal glands are unremarkable. OSSEOUS STRUCTURES: Mild ventral spondylosis. No lytic or sclerotic process seen. CT/CT chest wo con IMPRESSION: 6 mm nodule in the right lung base is stable since 06/02/2019. There is a 2 mm calcified nodule in the right upper lobe likely granuloma. No additional nodules seen. No acute process noted.
== END 2020-05-08 09:06 | disposition home or self-care (01) ==
LOC: HO.CT 09:05
PROVIDERS: PCP Internal Medicine; Visit Provider Internal Medicine
DX: R91.1 Solitary pulmonary nodule (principal); F17.210 Nicotine dependence, cigarettes, uncomplicated
CPT/HCPCS: 71250

== ENCOUNTER 2021-06-27 07:10 | Emergency (ER) | payer OTHER, SELFPAY ==
--- NOTE | ~2021-06-27 | XR_ITS ---
EXAMINATION: XR CHEST CLINICAL INFORMATION: Pain with coughing COMPARISON: April 08, 2020 TECHNIQUE: PA chest view of the chest was obtained. FINDINGS: No significant abnormality is noted involving the heart, lungs, mediastinum, bony thorax or soft tissues. XR/XR chest 1V IMPRESSION: No acute disease.
[2021-06-27 07:13] VITALS: BP 132/67; PULSE 85; RESP 18; TEMP 36.9; O2SAT 98; BMI 28.3
[2021-06-27 07:34] LABS: COVID-19 Test Positive (Negative)
--- NOTE | 2021-06-27 08:09 | ED_ITS ---
HPI - General Adult General Chief complaint: General Medical Stated complaint: Cough/Eye issues/back pain Time Seen by Provider: 06/27/21 08:08 Source: patient Mode of arrival: ambulatory Limitations: no limitations History of Present Illness HPI narrative: 51-year-old female who presents emergency department for evaluation nonproductive cough, pleuritic chest pain, shortness of breath, fever, weakness, diarrhea and bilateral ?pink eye ?. Patient states she has been sick for approximately 2 days. She states she has a cough which is nonproductive. She is also complaining of chest tightness which is worse with coughing and with breathing. She states that she feels short of breath but has no dyspnea on exertion. She states she is feeling weak and fatigued. She has had multiple episodes of diarrhea over the past 2 days. She states that this morning she woke up in both her eyes were crusted shot and her right eye is pink. The patient is not vaccinated for COVID-19. Related Data Previous Rx's Medication Instructions Recorded benzonatate 100 mg capsule 200 mg PO TID PRN #20 cap 06/27/21 sulfacetamide sodium 10 % eye 2 drp OPHTHALMIC-LEFT Q4H 7 Days 06/27/21 drops (Bleph-10) #5 ml Allergies Allergy/AdvReac Type Severity Reaction Status Date / Time No Known Allergies Allergy Unverified 02/10/20 16:08 [No Known Allergies*] Review of Systems Verdana 4l Review of Systems: Yes all other systems are reviewed and Verdana 4d are negative [facility] Past Medical History [facility] Narrative: Past medical history: Reviewed below, patient was hyperthyroid and then had a surgery is now hypothyroid. Past surgical history: . Social history: The patient smokes 1/2 pack of cigarettes per day times 36 years. She drinks alcohol daily. She states she drinks a pint of rum and several beers per day. She states she occasionally smokes marijuana. Medical History Alcohol abuse Bleeding hemorrhoid Enlarged liver Surgical History History of thyroidectomy Previous section Social History Social History Alcohol intake: never Advance Directives: No Advance Directives Information Provided: No Physical Exam Verdana 4l Vital Signs: Verdana 4d Verdana 4d Vital Signs: Verdana 4d Verdana 4Bd Last Vital Signs Verdana 4d Auto Body Detailer New 4d Auto Body Detailer New 4d Temp 98.4 F 06/27/21 07:13 Auto Body Detailer New 4d Pulse 85 06/27/21 07:13 Auto Body Detailer New 4d Resp 18 06/27/21 07:13 BP 132/67 06/27/21 07:13 Pulse Ox 98 06/27/21 07:13 BMI result Body Mass Index 28.3 Const: General: cooperative and no acute distress Orientation/consciousness: oriented to person and oriented to place Limitations: no limitations HENMT: Head: Yes normal to inspection, Yes normocephalic and Yes atraumatic Ears: external ears normal General nose exam: Normal external nose present Face and sinus: Yes normal facial exam Mouth: Normal oral and palatal mucosa present Throat: Yes posterior oropharynx normal Eyes: Conjunctivae: conjunctival abnormal (Bilateral erythema) Sclerae: sclerae normal Pupils: Equal, round and reactive pupils present Neck: Neck: Yes normal visual inspection, Yes no lymphadenopathy, Yes trachea midline and Yes supple Chest: Chest palpation & inspection: normal inspection of the chest and normal palpation of entire chest wall Resp: Effort & Inspection: normal respiratory effort and able to speak in complete sentences Auscultation: clear to auscultation bilaterally Cardio: Rate: regular rate Rhythm: regular rhythm Heart sounds: S1 normal heart sound present, S2 normal heart sound present and no murmurs GI: Inspection: Yes normal to inspection Palpation (GI): Soft to palpation, nontender and no guarding Auscultation: normal bowel sounds : General: Yes no CVA tenderness Back/Spine/Pelvis: Back: no CVA tenderness Skin: General skin exam: no rashes or lesions noted Neuro: General: oriented to person and oriented to place Cranial nerves: Yes CN's II-XII intact bilaterally and Yes Equal, round and reactive pupils present Cognition (Neuro): normal cognition Motor exam (neuro): 5/5 motor strength present throughout Extrem: General: Yes normal to inspection Psych: Appearance: grossly normal Speech and movement: Normal speech and movement present Affect: normal affect Attitude: cooperative Thought process: Normal thought process present Thought content: Normal thought content present Course Course Course Narrative: 51-year-old female who presents emergency department for evaluation of viral- like illness with symptoms cough, pleuritic chest pain, shortness of breath, weakness, diarrhea and conjunctivitis. Vital signs were normal with an O2 saturation of 98% on room air. Physical examination is consistent with bilateral conjunctivitis. COVID-19 test was positive. Chest x-ray was unremarkable. Patient was started on Bleph 10 , drops every 4 hours to both eyes and Tessalon Perles. The patient was given printed and verbal instructions and discharged home Medical Decision Making Lab Data Labs: Lab Results 06/27/21 Range/Units 07:17 COVID-19 (MUNIR) Positive A (Negative) COVID-19 Clin Com See Note Discharge Plan Discharge Clinical Impression: COVID-19 virus infection, Acute conjunctivitis of both eyes Patient Disposition: Home, Self-Care Additional Instructions: COVID-19 instructions Your vital signs today revealed a normal O2 saturation of 98 % on room air which is normal (92% to 100% is the normal range). We do not hospitalize people with a COVID-19 infection unless your O2 saturation drops below 90% and you have evidence for pneumonia on your chest x-ray. COVID-19 infection is a very bad viral infection and is causing all of your symptoms The symptoms that we normally see with a COVID-19 infection include sore throat, runny nose, chest pain, shortness of breath, shortness of breath with exertion, muscle aches, muscle pains, nausea, vomiting , diarrhea, loss of sense of taste or smell. You do not need to have all of the symptoms. Take ibuprofen 200 mg pills,2 pills every 6 hours as needed for pain and fever Take Tylenol (acetaminophen) 500 mg pills, 2 pills every 4 to 6 hours as needed for pain and fever. Based on your evaluation today, it is okay to send you home. Please plan for self quarantine for up to 14 days. Do not expose yourself to others. You may not go to work. Please continue to wear a mask, follow COVID-19 printed discharge instructions and wash your hands frequently. Please return to the emergency department if your symptoms pneumonia which would include worsening of your symptoms especially chest pain the breathing, shortness of breath at rest, shortness of breath with moving around her exerting herself, severe weakness, or if you develop any symptoms that are concerning to you. Take Tessalon Perles 100 mg pills, 2 pills every 6 hours as needed cough Conjunctivitis Instructions You do have conjunctivitis which is an infection of the eyes. This is most likely caused by the COVID virus but I am going to treat you with an antibiotic. Use the sulfacetamide 10% eyedrops, 2 drops every 4 hours while awake for 7 days, put this in both eyes. Prescriptions: New sulfacetamide sodium [Bleph-10] 10 % drops 2 drp ophthalmic-Left Q4H 7 Days Qty: 5 0RF benzonatate 100 mg capsule 200 mg PO TID PRN (Reason: cough) Qty: 20 0RF Interventions: ED Discharge Assessment Last Done: 06/27/21 08:49 Discharge Date/Time: 06/27/21 08:50
== END 2021-06-27 08:50 | disposition home or self-care (01) ==
PROVIDERS: Emergency Provider Emergency Medicine Emergency Medical Services; PCP Internal Medicine
DX: U07.1 COVID-19 (principal); R05.9 Cough, unspecified; H10.33 Unspecified acute conjunctivitis, bilateral; M54.50 Low back pain, unspecified; Z79.899 Other long term (current) drug therapy
CPT/HCPCS: 71045; 87635; 99283

== ENCOUNTER 2021-12-15 06:55 | Outpatient (REF) | payer OTHER, SELFPAY ==
--- NOTE | ~2021-12-15 | XR_ITS ---
EXAMINATION: XR KNEE, RIGHT XR KNEE, LEFT CLINICAL INFORMATION: Bilateral knee pain. COMPARISON: None TECHNIQUE: 4 views each knee. FINDINGS: RIGHT KNEE: There is mild loss of medial and lateral compartment joint space right knee with minimal periarticular spurring lateral compartment. No visible acute fracture or dislocation seen. There is minimal suprapatellar joint effusion. No loose body seen. LEFT KNEE: There is mild loss of medial compartment. The lateral and the patellofemoral compartment joint space is maintained normal. No abnormal joint effusion. No bony erosive changes. No acute fracture or dislocation seen. XR/XR knee LT 4V IMPRESSION: Degenerative arthritic changes medial and lateral compartment right knee and medial compartment left knee. There is mild right knee suprapatellar joint effusion. No visible acute fracture or loose body seen in either knee.
--- NOTE | ~2021-12-15 | XR_ITS ---
EXAMINATION: XR KNEE, RIGHT XR KNEE, LEFT CLINICAL INFORMATION: Bilateral knee pain. COMPARISON: None TECHNIQUE: 4 views each knee. FINDINGS: RIGHT KNEE: There is mild loss of medial and lateral compartment joint space right knee with minimal periarticular spurring lateral compartment. No visible acute fracture or dislocation seen. There is minimal suprapatellar joint effusion. No loose body seen. LEFT KNEE: There is mild loss of medial compartment. The lateral and the patellofemoral compartment joint space is maintained normal. No abnormal joint effusion. No bony erosive changes. No acute fracture or dislocation seen. XR/XR knee RT 4V IMPRESSION: Degenerative arthritic changes medial and lateral compartment right knee and medial compartment left knee. There is mild right knee suprapatellar joint effusion. No visible acute fracture or loose body seen in either knee.
== END 2021-12-15 06:56 | disposition home or self-care (01) ==
LOC: HO.XRAY 06:55
PROVIDERS: PCP Internal Medicine; Visit Provider Internal Medicine
DX: M25.561 Pain in right knee (principal); M25.562 Pain in left knee
CPT/HCPCS: 73564

== ENCOUNTER 2022-02-06 07:43 | Outpatient (REF) | payer OTHER, SELFPAY ==
--- NOTE | ~2022-02-06 | XR_ITS ---
EXAMINATION: XR KNEE AP STANDING, BILATERAL CLINICAL INFORMATION: Pain in the right knee. COMPARISON: 12/15/2021 TECHNIQUE: AP bilateral standing view of the knees was obtained. FINDINGS: Mild lateral compartment osteoarthritis with nonuniform joint space narrowing and small marginal osteophytes. Bones are osteopenic. No fracture or malalignment. Medial and lateral compartment joint spaces appear relatively well preserved at the left knee. Soft tissues are unremarkable. XR/XR knee standing BI IMPRESSION: Mild lateral compartment osteoarthritis at the right knee with increased loss of height on these weightbearing images.
== END 2022-02-06 07:44 | disposition home or self-care (01) ==
LOC: HO.HOSX 07:43
PROVIDERS: Visit Provider Physician Assistant
DX: M22.2X1 Patellofemoral disorders, right knee (principal); M22.2X2 Patellofemoral disorders, left knee
CPT/HCPCS: 20610; 73565; 99202; J1040

== ENCOUNTER 2022-12-20 11:06 | Outpatient (AMB) | payer OTHER, SELFPAY ==
--- NOTE | 2022-12-20 11:07 | A.OFFVIS_ITS ---
Intake Vital Signs 12/20/22 11:17 Height 5 ft 1 in Weight 150 lb BMI 28.3 Intake Visit Reasons: OV-B/L knee pain injection-last inj 02/06/22 Intake Note: Nelda 52 yr old female presents today for bilateral knee s/p injections from 02/06/23. States injection lasted until recently and would like to repeat injection today. Allergies No Known Allergies [No Known Allergies*] Allergy (Unverified 12/20/22 11:18) HPI OV-B/L knee pain injection-last inj 02/06/22 HPI Details 52-year-old female who returns to the office today for a follow-up of bilateral knee pain. She had her last injection on 02/06/22 which lasted until recently. She states she was able to ambulate without pain and perform most activities. She states currently, her right knee is worse than the left. COUNT INCLUDES THE [facility] Medical History Alcohol abuse Bleeding hemorrhoid Enlarged liver Surgical History History of thyroidectomy Previous section Social History Alcohol intake: current Alcohol intake frequency: 0-2 drinks per day Patient Tobacco Use Status: Current everyday Tobacco user Cigarette Packs Per Day: 10 Current occupational status: employed Review of Systems Const All systems reviewed & are unremarkable except as noted in HPI and below Physical Exam Vital Signs: BMI result Body Mass Index 28.3 Const General: cooperative and no acute distress Orientation/consciousness: patient oriented x3 Resp Effort & Inspection: normal respiratory effort and able to speak in complete sentences Cardio Peripheral pulses: Peripheral pulses 2+ throughout Neuro General: patient oriented x3 Extrem Other: Right knee skin intact, no erythema or joint effusion. Tenderness along the medial and lateral joint line. Lateral retropatellar tenderness. ROM full with crepitus. Negative steinmans. No ligamentous laxity. NVI. Left knee skin intact, no erythema or joint effusion. No Tenderness along the medial / lateral joint line. ROM full with crepitus. Negative steinmans. No ligamentous laxity. NVI. Office Procedures Joint Injection/Drain Joint Injection/Drain Primary Site: right knee Prep: site was prepped using aseptic technique, ethochloride spray was applied and injection warnings given Injected: 80 mg of, DepoMedrol, with 8 mL of, 1% plain lidocaine and in the joint Approach Used: anterolateral Procedure: The patient tolerated the procedure well and there was some relief with the local anesthesia Coding 91687 - Glenohumeral/Tronchanteric Bursa/Intraarticular Procedure code (CPT) selection complete Results Reviewed Results Reviewed: 12/20/22 11:29 Lidocaine HCl 2 % MPF [Xylocaine 2 % MPF] 5 ml .ROUTE .STK-MED ONE methylPREDNISolone acetate [DEPO-MedroL] 80 mg .ROUTE .STK-MED ONE Assessment & Plan Assessment & Plan (1) Patellofemoral arthralgia of both knees: Code(s): M22.2X1 - Patellofemoral disorders, right knee; M22.2X2 - Patellofemoral disorders, left knee Plan We discussed options today which include steroid injection. They did consent to move forward with the right knee injection, which was tolerated well. I recommended rest, ice and elevation and OTC anti-inflammatories PRN for discomfort. If symptoms persist or worsens over the next 6-8 weeks, patient will contact the office, otherwise follow-up as needed. If she decides at a later date she would like her left knee injected, she will contact our office to make an appt. Patient Instructions: Scribed for Home Zamora PA-C, by Bryson Guardado medical administrative assistant, on 12/20/2022 at 11:15 AM YOLANDA. Home Vanessa PA-C, have personally reviewed and agree with the information entered by the scribe. Coding Level of Care Code Est Pt Level 3 (16640) Diagnoses Patellofemoral arthralgia of both knees M22.2X1; M22.2X2 CPT Codes Coding - Joint 7: 36784 - Glenohumeral/Tronchanteric Bursa/Intraarticular ([id number])
[2022-12-20 11:17] VITALS: BMI 28.3
== END 2022-12-20 12:02 | disposition home or self-care (01) ==
PROVIDERS: PCP Internal Medicine; Visit Provider Physician Assistant
DX: M22.2X1 Patellofemoral disorders, right knee (principal); M22.2X2 Patellofemoral disorders, left knee
CPT/HCPCS: 20610; 99213

== ENCOUNTER → 2022-12-20 11:06 | Outpatient (BNVA) | payer OTHER, SELFPAY | PROVIDERS: PCP Internal Medicine; Visit Provider Physician Assistant | DX: M22.2X1 Patellofemoral disorders, right knee (principal); M22.2X2 Patellofemoral disorders, left knee | CPT/HCPCS: 20610; 99212; J1040 ==

== ENCOUNTER 2023-05-23 18:42 | Emergency (ER) | payer OTHER, SELFPAY ==
[2023-05-23 19:18] VITALS: BP 134/65; PULSE 109; RESP 16; TEMP 37.3; O2SAT 95; BMI 32.5
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
[2023-05-23 20:12] LABS: MANUAL DIFF FLAG NO
[2023-05-23 20:13] LABS: Basophils Absolute Auto 0.1 X10*3/uL (0.0-0.2); Basophils Percent Auto 0.4 % (0-2); Eosinophils Absolute Auto 0.1 X10*3/uL (0.0-0.4); Eosinophils Percent Auto 0.9 % (0-4); Hematocrit 34.8 % (37.0-47.0); Hemoglobin 11.6 g/dl (12.0-16.0); Imm Gran Abs Auto 0.05 X10*3/uL (0.00-0.03); Imm Gran Pct Auto 0.4 % (0.0-0.4); Lymphocytes Absolute Auto 3.8 X10*3/uL (1.2-4.9); Lymphocytes Percent Auto 31.2 % (20-40); Mean Corpuscular HGB Conc 33.3 g/dl (31.0-35.0); Mean Corpuscular Hemoglobin 33.5 pg (27.0-33.0); Mean Corpuscular Volume 100.6 fL (80.0-98.0); Mean Platelet Volume 10.7 fL (9.4-12.3); Monocytes Absolute Auto 1.5 X10*3/uL (0.1-1.2); Monocytes Percent Auto 11.8 % (2-11); Neutrophils Absolute Auto 6.8 x10*3/uL (2.0-8.3); Neutrophils Percent Auto 55.3 % (45-73); Red Blood Count 3.46 X10*6/uL (4.20-5.50); Red Cell Distribution Width 13.4 % (11.0-16.0); White Blood Count 12.3 X10*3/uL (4.8-10.8)
[2023-05-23 20:19] LABS: INTERNATIONAL NORM RATIO 1.3 (0.9-1.1); Prothrombin Time 15.5 SEC (11.1-13.3)
[2023-05-23 20:21] LABS: Partial Thromboplastin Time 34.8 SEC (26.0-36.4)
[2023-05-23 20:30] LABS: Alanine Aminotransferase 43 U/L (0-31); Albumin Level 3.3 g/dL (3.5-5.0); Alkaline Phosphatase 102 U/L (39-117); Anion Gap 13 (12-20); Aspartate Amino Transferase 51 U/L (5-31); Bilirubin Total 0.9 mg/dL (0.0-1.0); Blood Urea Nitrogen 11 mg/dL (9-16); Calcium 9.3 mg/dL (8.4-10.2); Carbon Dioxide 21 mmol/L (22-29); Chloride 107 mmol/L (96-108); Estimated Glomerular Filt Rate > 60; Glucose Random 133 mg/dL (60-115); Potassium 4.1 mmol/L (3.3-5.1); Sodium 137 mmol/L (135-145)
[2023-05-23 20:33] LABS: Platelet Count 88 X10*3/uL (160-400)
== END 2023-05-24 01:05 | disposition left against medical advice (07) ==
PROVIDERS: Registered Nurse Emergency; Emergency Provider Emergency Medicine; PCP Internal Medicine
DX: K62.5 Hemorrhage of anus and rectum (principal); R16.0 Hepatomegaly, not elsewhere classified; Z79.899 Other long term (current) drug therapy
CPT/HCPCS: 36415; 80053; 85025; 85610; 85730; 99281; 99283

== ENCOUNTER 2023-09-12 16:55 | Outpatient (REF) | payer OTHER, SELFPAY ==
--- NOTE | ~2023-09-12 | XR_ITS ---
EXAMINATION: XR CHEST CLINICAL INFORMATION: Rule out pneumonia. Cough. COMPARISON: 06/27/2021 and 01/25/2020 chest radiographs. 05/08/2020 CT chest. TECHNIQUE: 2 views of the chest were obtained. FINDINGS: There is no gross pneumothorax. Heart size is normal. No gross pleural effusion. Degenerative changes in the lumbar spine with mild leftward curvature. Mild bibasilar patchy opacities may represent atelectasis, although pneumonia could also be considered. XR/XR chest 2V IMPRESSION: Mild bibasilar patchy opacities may represent atelectasis, although pneumonia could also be considered.
[2023-09-12 17:23] LABS: MANUAL DIFF FLAG NO
[2023-09-12 17:33] LABS: Basophils Absolute Auto 0.1 X10*3/uL (0.0-0.2); Basophils Percent Auto 0.6 % (0-2); Eosinophils Absolute Auto 0.1 X10*3/uL (0.0-0.4); Eosinophils Percent Auto 0.6 % (0-4); Hematocrit 41.8 % (37.0-47.0); Hemoglobin 14.1 g/dl (12.0-16.0); Imm Gran Abs Auto 0.03 X10*3/uL (0.00-0.03); Imm Gran Pct Auto 0.3 % (0.0-0.4); Lymphocytes Absolute Auto 3.5 X10*3/uL (1.2-4.9); Lymphocytes Percent Auto 35.7 % (20-40); Mean Corpuscular HGB Conc 33.7 g/dl (31.0-35.0); Mean Corpuscular Hemoglobin 32.9 pg (27.0-33.0); Mean Corpuscular Volume 97.4 fL (80.0-98.0); Mean Platelet Volume 10.6 fL (9.4-12.3); Monocytes Absolute Auto 1.1 X10*3/uL (0.1-1.2); Monocytes Percent Auto 11.3 % (2-11); Neutrophils Absolute Auto 5.1 x10*3/uL (2.0-8.3); Neutrophils Percent Auto 51.5 % (45-73); Red Blood Count 4.29 X10*6/uL (4.20-5.50); Red Cell Distribution Width 15.1 % (11.0-16.0); White Blood Count 9.9 X10*3/uL (4.8-10.8)
[2023-09-12 17:38] LABS: Platelet Count 70 X10*3/uL (160-400)
[2023-09-12 18:16] LABS: Alanine Aminotransferase 55 U/L (0-31); Albumin Level 3.5 g/dL (3.5-5.0); Alkaline Phosphatase 126 U/L (39-117); Anion Gap 10 (12-20); Aspartate Amino Transferase 86 U/L (5-31); Blood Urea Nitrogen 12 mg/dL (9-16); C Reactive Protein 0.47 mg/dL (< or = 0.50); Calcium 8.9 mg/dL (8.4-10.2); Carbon Dioxide 23 mmol/L (22-29); Chloride 107 mmol/L (96-108); Estimated Glomerular Filt Rate > 60; Glucose Random 104 mg/dL (60-115); Potassium 3.7 mmol/L (3.3-5.1); Sodium 136 mmol/L (135-145); Total Protein 7.5 g/dL (6.5-8.0)
[2023-09-12 18:31] LABS: Free T4 (Free Thyroxine) 0.74 ng/dL (0.71-1.85); Thyroid Stimulating Hormone 10.32 uIU/mL (0.32-4.0)
[2023-09-12 18:57] LABS: Folate 13.3 ng/mL (> or = 4.0)
[2023-09-14 00:50] LABS: Vitamin B12 1093 pg/mL (200-900)
== END 2023-09-12 16:56 | disposition home or self-care (01) ==
LOC: HO.LAB 16:55
PROVIDERS: PCP Internal Medicine; Visit Provider Internal Medicine
DX: R05.9 Cough, unspecified (principal); R06.02 Shortness of breath; E03.9 Hypothyroidism, unspecified
CPT/HCPCS: 36415; 71046; 80053; 82550; 82607; 82746; 84439; 84443; 85025; 86140

== ENCOUNTER 2023-12-12 22:49 | Emergency (ER) | payer OTHER, SELFPAY ==
--- NOTE | 2023-12-12 | ECG_ITS ---
Test Reason : DIZZINESS Blood Pressure : / mmHG Vent. Rate : 078 BPM Atrial Rate : 078 BPM P-R Int : 138 ms QRS Dur : 090 ms QT Int : 408 ms P-R-T Axes : 046 007 032 degrees QTc Int : 465 ms Normal sinus rhythm Normal ECG When compared with ECG of 08-APR-2020 07:27, No significant change was found Referred By: Generic ED Physician Electronically Signed By:PERCY METCALF MD
[2023-12-12 23:26] VITALS: BP 120/75; PULSE 84; RESP 16; TEMP 36.5; O2SAT 97; BMI 32.2
[2023-12-12 23:59] LABS: Alanine Aminotransferase 57 U/L (0-31); Albumin Level 3.7 g/dL (3.5-5.0); Alkaline Phosphatase 101 U/L (39-117); Anion Gap 15 (12-20); Aspartate Amino Transferase 72 U/L (5-31); Bilirubin Direct 0.5 mg/dL (0.0-0.5); Bilirubin Total 1.3 mg/dL (0.0-1.0); Blood Urea Nitrogen 11 mg/dL (9-16); Calcium 9.4 mg/dL (8.4-10.2); Carbon Dioxide 21 mmol/L (22-29); Chloride 107 mmol/L (96-108); Creatinine Clr Calc Pharmacy 86.2; Estimated Glomerular Filt Rate > 60; Ethanol < 10 mg/dL; Glucose Random 102 mg/dL (60-115); Lipase 29 U/L (8-78); Potassium 3.7 mmol/L (3.3-5.1); Sodium 139 mmol/L (135-145); Total Protein 7.8 g/dL (6.5-8.0)
[2023-12-13 00:04] LABS: Troponin-I High Sensitivity < 2.7 ng/L (<3.5-17.0)
[2023-12-13 00:14] LABS: MANUAL DIFF FLAG NO
[2023-12-13 00:15] LABS: Basophils Absolute Auto 0.1 X10*3/uL (0.0-0.2); Basophils Percent Auto 0.6 % (0-2); Eosinophils Absolute Auto 0.1 X10*3/uL (0.0-0.4); Hematocrit 39.5 % (37.0-47.0); Hemoglobin 13.6 g/dl (12.0-16.0); Imm Gran Abs Auto 0.03 X10*3/uL (0.00-0.03); Imm Gran Pct Auto 0.3 % (0.0-0.4); Lymphocytes Absolute Auto 3.6 X10*3/uL (1.2-4.9); Lymphocytes Percent Auto 35.2 % (20-40); Mean Corpuscular HGB Conc 34.4 g/dl (31.0-35.0); Mean Corpuscular Hemoglobin 34.3 pg (27.0-33.0); Mean Corpuscular Volume 99.7 fL (80.0-98.0); Mean Platelet Volume 9.4 fL (9.4-12.3); Monocytes Absolute Auto 1.3 X10*3/uL (0.1-1.2); Monocytes Percent Auto 12.4 % (2-11); Neutrophils Absolute Auto 5.2 x10*3/uL (2.0-8.3); Neutrophils Percent Auto 50.5 % (45-73); Platelet Count 103 X10*3/uL (160-400); Red Blood Count 3.96 X10*6/uL (4.20-5.50); Red Cell Distribution Width 13.7 % (11.0-16.0); White Blood Count 10.3 X10*3/uL (4.8-10.8)
--- NOTE | 2023-12-13 00:25 | ED.GENADULT ---
HPI - General Adult General Chief complaint: Dizziness Stated complaint: L leg swelling, migraine Time Seen by Provider: 12/13/23 00:12 Source: patient Mode of arrival: ambulatory Limitations: no limitations History of Present Illness ED Provider: homa DIAMOND narrative: Patient alcoholic trying to decrease alcohol use last drink was 3 days ago on noticed bruising of the left thigh today she comes as still has some bruising left on the left thigh no recent fall no bleeding from any other place onto complaining of mild headache with nausea and light sensitivity Related Data Home Medications ?Medication ?Instructions ?Recorded ?Confirmed levothyroxine 112 mcg tablet 112 mcg PO DAILY 02/06/22 Previous Rx's ?Medication ?Instructions ?Recorded benzonatate 100 mg capsule 200 mg (2 x 100 mg) PO TID PRN 06/27/21 cough #20 caps sulfacetamide sodium 10 % eye 2 drp ophthalmic-Left Q4H 7 days 06/27/21 drops (Bleph-10) #5 mL naproxen 500 mg tablet 500 mg PO BID #60 tabs 10/31/23 ondansetron 4 mg disintegrating 4 mg PO Q6-8H PRN nausea and 12/13/23 tablet vomiting #7 tabs Allergies Allergy/AdvReac Type Severity Reaction Status Date / Time No Known Allergies Allergy Verified 12/12/23 23:28 [No Known Allergies*] Review of Systems Review of Systems: Yes all other systems are reviewed and are negative PMFSH Past Medical History Medical History Bleeding hemorrhoid Alcohol abuse Enlarged liver Surgical History Previous section History of thyroidectomy Social History Social History Alcohol intake: current Alcohol intake frequency: 3 or more drinks per day Alcohol type: beer and wine Patient Tobacco Use Status: Current everyday Tobacco user Cigarette Packs Per Day: 10 Smoked in Last 30 Days: Yes Use of substances other than those prescribed or required for medical reasons: No Advance Directives: No Advance Directives Information Provided: No Patient : No Current occupational status: employed Physical Exam ED Vital Signs: Vital Signs - 24 hr 12/12/23 23:26 Temperature 97.7 F Pulse Rate 84 Respiratory Rate 16 Blood Pressure 120/75 Pulse Oximetry 97 Oxygen Delivery Method Room Air BMI result Body Mass Index 32.2 Appearance: Alert. Oriented X3. No acute distress. Eyes: PERRLA, no pallor or icterus ENT: Pharynx normal. Oral Mucosa moist Neck: Normal inspection. Neck supple. CVS: Normal heart rate and rhythm. Pulses normal. Respiratory: No respiratory distress. Equal air entry bilateral, no wheezing/rales/rhonchi Abdomen: Soft and nontender. Bowel sounds are present, no mass palpable, no CVA tenderness Skin: Skin warm and dry. Normal skin color. Normal skin turgor. Extremities: No lower extremity edema. No calf tenderness small area of ecchymosis on the left thigh Neuro: Oriented X 3. No motor deficit. No sensory deficit.No cerebellar signs , cranial nerves II-XII intact Medications Administered Discontinued Medications Generic Name Dose Route Start Last Admin Trade Name Freq PRN Reason Stop Dose Admin Acetaminophen/Butalbital/Caffeine 1 tab 12/13/23 00:26 12/13/23 00:39 Butalb/Acetamin/Caff 50/325/40 Tablet PO 12/13/23 00:27 1 tab ONCE ONE Administration Ondansetron HCl 4 mg 12/13/23 00:26 12/13/23 00:39 Ondansetron Odt 4 Mg Tab.Rapdis TRANSLINGU 12/13/23 00:27 4 mg ONCE ONE Administration Medical Decision Making Medical Decision Making [facility] Narrative: Patient is stable labs small area of ecchymosis in the left eye does come with migraine headache responded to Fioricet will discharge patient home advised to continue stop drinking and follow with detox Differential Diagnosis Differential Diagnoses: The differential diagnosis associated with the presentation includes Thrombocytopenia/coagulation disorder/migraine headache Lab Data [facility] Lab Attestation statement: I reviewed the patient's lab results. 12/13/23 00:10 12/12/23 23:39 Labs: Lab Results 12/12/23 12/13/23 Range/Units 23:39 00:10 WBC 10.3 (4.8-10.8) X10*3/uL RBC 3.96 L (4.20-5.50) X10*6/uL Hgb 13.6 (12.0-16.0) g/dl Hct 39.5 (37.0-47.0) % MCV 99.7 H (80.0-98.0) fL MCH 34.3 H (27.0-33.0) pg MCHC 34.4 (31.0-35.0) g/dl RDW 13.7 (11.0-16.0) % Plt Count 103 L D (160-400) X10*3/uL MPV 9.4 (9.4-12.3) fL Immature Gran % (Auto) 0.3 (0.0-0.4) % Neut % (Auto) 50.5 (45-73) % Lymph % (Auto) 35.2 (20-40) % Stark % (Auto) 12.4 H (2-11) % Eos % (Auto) 1.0 (0-4) % Baso % (Auto) 0.6 (0-2) % Lymph # (Auto) 3.6 (1.2-4.9) X10*3/uL Stark # (Auto) 1.3 H (0.1-1.2) X10*3/uL Eos # (Auto) 0.1 (0.0-0.4) X10*3/uL Baso # (Auto) 0.1 (0.0-0.2) X10*3/uL Abs Immat Gran (auto) 0.03 (0.00-0.03) X10*3/uL Absolute Neuts (auto) 5.2 (2.0-8.3) x10*3/uL Absolute Nucleated RBC 0.000 (0.0-0.012) X10*3/uL Nucleated RBC % (auto) 0.0 (0.0-0.2) /100WBC Sodium 139 (135-145) mmol/L Potassium 3.7 (3.3-5.1) mmol/L Chloride 107 (96-108) mmol/L Carbon Dioxide 21 L (22-29) mmol/L Anion Gap 15 (12-20) BUN 11 (9-16) mg/dL Creatinine 0.73 (0.5-1.4) mg/dL Estim Creat Clear Calc 86.2 Estimated GFR > 60 Random Glucose 102 (60-115) mg/dL Calcium 9.4 (8.4-10.2) mg/dL Total Bilirubin 1.3 H (0.0-1.0) mg/dL Direct Bilirubin 0.5 (0.0-0.5) mg/dL AST 72 H (5-31) U/L ALT 57 H (0-31) U/L Alkaline Phosphatase 101 (39-117) U/L Troponin I High Sens < 2.7 (<3.5-17.0) ng/L Total Protein 7.8 (6.5-8.0) g/dL Albumin 3.7 (3.5-5.0) g/dL Lipase 29 (8-78) U/L Ethyl Alcohol < 10 mg/dL Discharge Plan Discharge Clinical Impression: Headache, migraine, Alcohol abuse Patient Disposition: Home, Self-Care Instructions: Migraine Headache (ED), Abuse of Alcohol (ED) Additional Instructions: Drink plenty of fluids Stop drinking alcohol Medicine for the nausea as prescribed Follow with detox Prescriptions: New ondansetron 4 mg tablet,disintegrating 4 mg PO Q6-8H PRN (Reason: nausea and vomiting) Qty: 7 0RF No Action naproxen 500 mg tablet 500 mg PO BID Qty: 60 3RF sulfacetamide sodium [Bleph-10] 10 % drops 2 drp ophthalmic-Left Q4H 7 Days Qty: 5 0RF benzonatate 100 mg capsule 200 mg PO TID PRN (Reason: cough) Qty: 20 0RF levothyroxine 112 mcg tablet 112 mcg PO DAILY Interventions: ED Discharge Assessment Last Done: 12/13/23 01:32 Print Language: Cuban
[2023-12-13] MEDS: Ondansetron ODT 4 MG TAB.RAPDIS TRANSLINGU (00:39)
[2023-12-13] MEDS: Butalb/Acetamin/Caff 50/325/40 TABLET 1 TAB PO (00:39)
[2023-12-13 01:32] VITALS: BP 120/75; PULSE 84; RESP 16; TEMP 36.5; O2SAT 97
== END 2023-12-13 01:33 | disposition home or self-care (01) ==
PROVIDERS: Emergency Provider Internal Medicine
DX: G43.909 Migraine, unspecified, not intractable, without status migrainosus (principal); F10.10 Alcohol abuse, uncomplicated; Y90.0 Blood alcohol level of less than 20 mg/100 ml; R16.0 Hepatomegaly, not elsewhere classified; F17.210 Nicotine dependence, cigarettes, uncomplicated; Z79.899 Other long term (current) drug therapy
CPT/HCPCS: 36415; 80053; 80307; 82248; 83690; 84484; 85025; 93005; 99283; 99284

== ENCOUNTER → 2023-12-12 23:52 | Outpatient (BNV) | payer OTHER, SELFPAY | PROVIDERS: Emergency Provider Internal Medicine; Visit Provider Internal Medicine Cardiovascular Disease | DX: R42 Dizziness and giddiness (principal) | CPT/HCPCS: 93010 ==

== ENCOUNTER 2025-01-17 16:57 | Outpatient (AMB) | payer OTHER, SELFPAY ==
--- NOTE | 2025-01-17 17:05 | MHC.PC.OV ---
Vital Signs 01/17/25 17:09 Height 5 ft 1 in Weight 183 lb BMI 34.6 BP 126/74 Blood Pressure Location Rt brachial Position Sitting Pulse 77 Pulse Source Pulse Oximeter Temp 97.1 F Temp Source Temporal Artery Scan Pulse Oximetry (%) 98 Oxygen Delivery Method Room Air Intake Visit Reasons: Routine - see comments Clinical Pharmacist Required: No Accompanied by: Self / Same As Patient Allergies Penicillins (PCN) Allergy (Unknown, Verified 01/17/25 17:12) nose itch Medication List - Last Reconciled 01/17/25 by BEVERLY Diaz levothyroxine 112 mcg PO DAILY naproxen 500 mg PO BID PRN naproxen 500 mg PO BID PRN sertraline 25 mg PO DAILY Tobacco use date assessed: 01/17/25 Dental Screening Dental Screen Date: 01/17/25 Did you have a dental visit in the last 12 months?: No Did you have a dental problem in the last 6 months where you did not have access to dental care?: No HPI HPI Comments History of Present Illness Details 55 year old female with history of Thyroidectomy, alcohol use with elevated LFTs and chronic knee pain here for follow up. Patient states since the Covid pandemic she has been staying in her home. She has been getting increased anxiety and having panic attacks when she tries to leave home. She states she tried counseling for about 3-4 sessions but she did not connect with the therapist so she stopped going. She states she is concerned about her liver. It feels enlarged. She stopped drinking alcohol a week ago. She is on Levothyroxine and is due for TSH. She has tinea of her finger and toenails. She would like a topical treatment. She is smoking around 5 cigarettes per day. She states she cut down with patches from close to a pack a day. She is due for PAP and Mammogram but does not want to do because of anxiety. She would like a refill of Naproxen for her knee pain. She had stopped taking it because the knees were doing better but she has gained weight and the pain is back [facility] Medical History (Updated 01/18/25 @ 09:33 by BEVERLY Diaz) Agoraphobia with panic attacks Alcohol abuse Bleeding hemorrhoid Cigarette smoker Elevated LFTs Enlarged liver Hypothyroid Obesity (BMI 30.0-34.9) Surgical History History of thyroidectomy Previous section Family History (Updated 01/17/25 @ 17:14 by Ирина Hurt MA) Mother No problems noted. Father No problems noted. Social History Housing: Apartment Alcohol intake: current Alcohol intake frequency: 3 or more drinks per day Alcohol type: beer and wine Patient Tobacco Use Status: Current everyday Tobacco user Cigarette Packs Per Day: 10 e-Cigarette/Vaping Use: Currently Using service: No Current occupational status: unemployed Cognitive needs: No Hearing needs: No Vision needs: Yes (rx glasses) Questionnaire PHQ-9 Over the last 2 weeks, how often have you been bothered by any of the following problems? 1. Little interest or pleasure in doing things: not at all 2. Feeling down, depressed, or hopeless: nearly every day 3. Trouble falling or staying asleep, or sleeping too much: nearly every day 4. Feeling tired or having little energy: nearly every day 5. Poor appetite or overeating: not at all 6. Feeling bad about yourself - or that you are a failure or have let yourself or your family down: nearly every day 7. Trouble concentrating on things, such as reading the newspaper or watching television: nearly every day 8. Moving or speaking so slowly that other people could have noticed. Or the opposite - being so fidgety or restless that you have been moving around a lot more than usual: not at all 9. Thoughts that you would be better off or of hurting yourself in some way: not at all Total score: 15 Source: Developed by Drs. Man Waddell, Savana Daley, Nakul Carty and colleagues, with an educational freddy from [employer]. Thrive Questionnaire Date Thrive assessed: 01/17/25 I am a: Patient Within the past 12 months, did the food you bought not last and you didn't have the money to get more?: Never true Within the past 12 months, did you worry whether your food would run out before you got money to buy more?: Never true Do you have trouble paying for medicines?: No Do you have trouble getting transportation to medical appointments?: No Do you have trouble paying your heating and electricity bill?: No Do you have trouble taking care of your child, family member or friend?: No Do you have trouble with day-to-day activities such as bathing, preparing meals, shopping, managing finances, etc.?: No Are you currently unemployed and looking for a job?: No Are you interested in more education?: No THRIVE Score: 0 AUDIT C Alcohol Use Questionnaire (AUDIT-C) 1. How often do you have a drink containing alcohol?: Monthly or less 2. How many drinks containing alcohol do you have on a typical day when you are drinking?: 1 or 2 3. How often do you have six or more drinks on one occasion?: Less than monthly Total Score: 2 SHANNON-7 AMB Questionnaire SHANNON-7 Date SHANNON - 7 assessed: 01/17/25 Feeling nervous, anxious, or on edge: 3 = Nearly every day Not being able to stop or control worryin = Nearly every day Worrying too much about different things: 3 = Nearly every day Trouble relaxin = Nearly every day Being so restless that it is hard to sit still: 0 = Not at all Becoming easily annoyed or irritable: 0 = Not at all Feeling afraid as if something awful might happen: 0 = Not at all Total SHANNON-7 score (0-4 normal; 5-9 mild; 10-14 moderate; 15-21 severe): 12 Source: Developed by Drs. Man Waddell, Savana Daley, Nakul Carty and colleagues, with an educational freddy from [employer]. Review of Systems Const Details: CONSTITUTIONAL Weight gain HEAD/NECK Negative EAR/NOSE/MOUTH/THROAT Negative RESPIRATORY Negative CARDIOVASCULAR Negative GASTROINTESTINAL pressure in RUQ MUSCULOSKELETAL Bilateral knee pain NEUROLOGICAL Negative SKIN yellowing and thickening of finger and toe nails PSYCHIATRIC Anxiety with panic attacks Physical exam (Primary Care) Vital Signs: Last Vital Signs Temp 97.1 F 01/17/25 17:09 Pulse 77 01/17/25 17:09 BP 126/74 01/17/25 17:09 Pulse Ox 98 01/17/25 17:09 Oxygen Delivery Method Room Air 01/17/25 17:09 BMI result Body Mass Index 34.6 Tobacco/Smoking Status: Tobacco use Status Tobacco use date assessed 01/17/25 01/17/25 17:07 Patient Tobacco Use Status Current everyday Tobacco 01/17/25 17:07 e-Cigarette/Vaping Use Currently Using 01/17/25 17:07 PHQ-9: PHQ-9 Score PHQ-9: Total score 15 01/17/25 17:21 Thrive Assessment: Date of Thrive Assessment Date Thrive assessed 01/17/25 01/17/25 17:07 Const Other: GENERAL Well developed, obese, appearing anxious HEENT Head-Normocephalic Eyes- PERRLA, EOMI, Conjuctiva clear, lids WNL Neck- Supple, No lymphadenopathy, thyroid WNL RESPIRATORY Normal I:E, Clear to auscultation CARDIOVASCULAR Regular, rate and rhthym, No murmurs or rubs GASTROINTESTINAL Soft, nontender, normal bowel sounds, hepatomegaly SKIN Yellowing of nails. MUSCULOSKELETAL Knees-Full ROM, tender at joint line, no swelling. NEUROLOGICAL Gait normal PSYCHIATRIC Oriented to person, place and time Mood and affect -anxious Appearance WNL Speech WNL Thought processes WNL Coding Level of Care Code Est Pt Level 4 (86917) Diagnoses Agoraphobia with panic attacks F40.01 Alcohol abuse F10.10 Elevated LFTs R79.89 Postoperative hypothyroidism E89.0 Hypothyroidism type: postoperative OM (onychomycosis) B35.1 Patellofemoral arthralgia of both knees M22.2X1; M22.2X2 Cigarette smoker F17.210 Obesity (BMI 30.0-34.9) E66.811 Assessment & Plan Assessment & Plan (1) Agoraphobia with panic attacks: Code(s): F40.01 - Agoraphobia with panic disorder Category: Medical Plan: Treatment/evaluation options discussed with patient at length. Will refer to for counseling. Will start Sertraline 25mg at bedtime. Patient to follow up in 6 weeks or sooner if symptoms persist or worsen. (2) Alcohol abuse: Code(s): F10.10 - Alcohol abuse, uncomplicated Category: Social Hx Plan: Patient states she stopped drinking about a week ago but is concerned she will start again. Referral placed for . (3) Elevated LFTs: Code(s): R79.89 - Other specified abnormal findings of blood chemistry Category: Medical Plan: Will get labs to check LFTs. Patient may need RUQ US. Will discuss after labs. (4) Hypothyroid: Code(s): E03.9 - Hypothyroidism, unspecified Category: Medical Qualifiers: Hypothyroidism type: postoperative Qualified Code(s): E89.0 - Postprocedural hypothyroidism Plan: Will get TSH. Patient to continue Levothyroxine. Patient to follow up in 6 months or sooner if symptoms persist or worsen. (5) OM (onychomycosis): Code(s): B35.1 - Tinea unguium Plan: Will try treating with PenLAC to nails. Patient to follow up as needed if symptoms persist or worsen. (6) Patellofemoral arthralgia of both knees: Code(s): M22.2X1 - Patellofemoral disorders, right knee; M22.2X2 - Patellofemoral disorders, left knee Category: Medical Plan: Will refill Naproxen. Will monitor. Patient to follow up as needed if symptoms persist or worsen. (7) Cigarette smoker: Code(s): F17.210 - Nicotine dependence, cigarettes, uncomplicated Category: Social Hx Plan: Patient is smoking cigarettes daily. We discussed health risks associated with cigarette smoking. Patient is not interested in quitting smoking at this time but has been able to cut back. (8) Obesity (BMI 30.0-34.9): Code(s): E66.811 - Obesity, class 1 Category: Medical Plan: Discussed the health risks of obesity with the patient. Reviewed benefits of even moderate weight loss with the patient. Patient will gradually try and increase exercise to 30-40 min 5-7 times per week. We discussed they may need to break the exercise up into 2-3 sessions daily due to knee pain. We discussed the patient adding more fruits and vegetables to their diet. Will monitor weight and follow up in 6 months. Orders: Orders TSH reflex Free T4 01/17/25 E03.9 - Hypothyroidism, unspecified Liver Panel 01/17/25 R79.89 - Other specified abnormal findings of blood chemistry Referrals Behavioral Health Referral F40.01 - Agoraphobia with panic disorder Medications: New naproxen 500 mg PO BID PRN 60 tabs 2RF pain sertraline take at bedtime 25 mg PO DAILY 60 tabs 0RF anxiety vewsxomqkg-drxlmmqecet-mifrlqe 8-1-1 % Apply topically to nails; 15 mL 6RF tinea Changed From levothyroxine 112 mcg PO DAILY To levothyroxine first thing in am on empty stomach 112 mcg PO DAILY 90 tabs 1RF hypothyroidism Discontinued naproxen Discontinued Reason: Doctor's Order 500 mg PO BID PRN S93.409A - Sprain of unspecified ligament of unspecified ankle, initial encounter
[2025-01-17 17:09] VITALS: BP 126/74; PULSE 77; TEMP 36.2; O2SAT 98; BMI 34.6
== END 2025-01-17 17:41 | disposition home or self-care (01) ==
LOC: HO.HMCHD 16:58
PROVIDERS: Visit Provider Physician Assistant Medical
DX: F40.01 Agoraphobia with panic disorder (principal); F10.10 Alcohol abuse, uncomplicated; R79.89 Other specified abnormal findings of blood chemistry; E89.0 Postprocedural hypothyroidism; B35.1 Tinea unguium; M22.2X1 Patellofemoral disorders, right knee; M22.2X2 Patellofemoral disorders, left knee; F17.210 Nicotine dependence, cigarettes, uncomplicated; E66.811 Obesity, class 1

== ENCOUNTER → 2025-01-17 16:57 | Outpatient (BNVA) | payer OTHER, SELFPAY | PROVIDERS: Visit Provider Physician Assistant Medical | DX: F40.01 Agoraphobia with panic disorder (principal); F10.10 Alcohol abuse, uncomplicated; R79.89 Other specified abnormal findings of blood chemistry; E89.0 Postprocedural hypothyroidism; B35.1 Tinea unguium; M22.2X1 Patellofemoral disorders, right knee; M22.2X2 Patellofemoral disorders, left knee; E66.811 Obesity, class 1; Z68.34 Body mass index [BMI] 34.0-34.9, adult; F17.210 Nicotine dependence, cigarettes, uncomplicated; Z79.899 Other long term (current) drug therapy; Z13.31 Encounter for screening for depression; Z13.39 Encounter for screening examination for other mental health and behavioral disorders | CPT/HCPCS: 99212 ==

== ENCOUNTER 2025-02-15 15:42 | Outpatient (REF) | payer OTHER, SELFPAY ==
[2025-02-15 17:58] LABS: Alanine Aminotransferase 99 U/L (0-31); Albumin Level 3.2 g/dL (3.5-5.0); Alkaline Phosphatase 152 U/L (39-117); Aspartate Amino Transferase 148 U/L (5-31); Total Protein 6.6 g/dL (6.5-8.0)
--- OUTSIDE RECORDS SUMMARY | 2025-02-15 18:25 | XMS_ITS | Clinical Summary ---
Author Organization [facility] Address [address] [address] Phone Care Team Providers Care Battery Service Technician Name Role Phone Pcp, Unknown Primary Care Provider Unavailabl e Allergies No known active allergies Social History Tobacco Use Types Packs/Day Years Used Date Smoking Tobacco: Never Assessed Education Answer Date Recorded Are you interested in more education? Not on maty e 05/24/2023 Are you concerned about learning? Not on file 05/24/2023 No 05/24/2023 No 05/24/2023 Digital Access Answer Date Recorded No 05/24/2023 No 05/24/2023 Reliable internet access at home? Not on file 05/24/2023 Device with a working camera? Not on file Intimate Partner Violence Answer Date R ecorded Are you denied basic needs s uch as food, clothing, or medical care? No 05/24/2023 In the past 12 months have y ou been in a relationship with a person who hurts, threatens, or tries to control you? No 05/24/2023 Are you denied basic needs s uch as food, clothing, or medical care? No 05/24/2023 In the past 12 months have y ou been in a relationship with a person who hurts, threatens, or tries to control you? No 05/24/2023 Comments Unknown Sex and Gender Information Value Date Recorded Sex Assigned at Female 05/24/2023 4:14 PM EST Legal Sex Female 3:47 PM EST Gender Identity Female 05/24/2023 4:14 PM EST Sexual Orientation Not on file Last Filed Vital Signs Vital Sign Reading Time Taken Comments Blood Pressure 109/70 05/24/2023 9:48 PM EST Pulse 81 05/24/2023 9:48 PM EST Temperature 37.5 C (99.5 F) 05/24/2023 9:48 PM EST Respiratory Rate 22 05/24/2023 9:48 PM EST Oxygen Saturation 98% 05/24/2023 9:48 PM EST Inhaled Oxygen Concentration - - Weight 78 kg (172 lb) 05/24/2023 4:13 PM EST Height 154.9 cm (5' 1 ) 05/24/2023 4:13 PM EST Body Mass Index 32.5 05/24/2023 4:13 PM EST Plan of Treatment Not on file Medical Devices Not on file Insurance * Guarantor: Nelda Price Account Type Relation to Patient Date of Phone Billing Address Personal/Family Self [address] [place] [address] [employer] * Guarantor: Nelda Price Account Type Relation to Patient Date of Phone Billing Address Personal/Family Self 1970 [address] [place] [address] [employer] * Guarantor: Nelda Prcie Account Type Relation to Patient Date of Phone Billing Address Personal/Family Self [address] [place] [address] [email or web address] Care Teams Battery Service Technician Relationship Specialty Start Date End Date Pcp, Unknown PCP - General 05/24/23 Additional Source Comments The information contained in this document represents components of the legal health record. It is not the complete legal health record.[facility]
[2025-02-15 20:06] LABS: Free T4 (Free Thyroxine) 0.89 ng/dL (0.71-1.85)
== END 2025-02-15 15:43 | disposition home or self-care (01) ==
LOC: HO.LAB 15:42
PROVIDERS: PCP Physician Assistant Medical; Visit Provider Physician Assistant Medical
DX: R79.89 Other specified abnormal findings of blood chemistry (principal); E03.9 Hypothyroidism, unspecified
CPT/HCPCS: 36415; 80076; 84439; 84443

== ENCOUNTER 2025-03-22 14:12 | Outpatient (AMB) | payer OTHER, SELFPAY ==
[2025-03-22 14:23] VITALS: BP 120/82; PULSE 94; TEMP 36.5; O2SAT 98; BMI 33.5
--- NOTE | 2025-03-22 14:23 | MHC.PC.OV ---
Vital Signs 03/22/25 14:23 Height 5 ft 2 in Weight 183 lb 6 oz BMI 33.5 BP 120/82 Blood Pressure Location Lt brachial Position Sitting Pulse 94 Pulse Source Pulse Oximeter Temp 97.7 F Temp Source Temporal Artery Scan Pulse Oximetry (%) 98 Oxygen Delivery Method Room Air Intake Visit Reasons: Follow Up [employer] Facility Supervisor Required: No Accompanied by: Self / Same As Patient Allergies Penicillins (PCN) Allergy (Unknown, Verified 03/22/25 14:23) nose itch Medication List - Last Reconciled 03/22/25 by BEVERLY Diaz carboxymethylcellulose sodium 1% (Artificial Tears (carboxymethylcellulose)) 1 drp ophthalmic (eye) BID ciclopirox 8% 1 appl topical DAILY escitalopram oxalate 5 mg PO DAILY levothyroxine (Levoxyl) 150 mcg PO DAILY naproxen 500 mg PO BID PRN Tobacco use date assessed: 03/22/25 Dental Screening Dental Screen Date: 03/22/25 Did you have a dental visit in the last 12 months?: No Did you have a dental problem in the last 6 months where you did not have access to dental care?: No HPI HPI Comments History of Present Illness Details The patient is a 55-year-old female with history of Thyroidectomy, alcohol use with elevated LFTs and chronic knee pain presenting for follow-up on thyroid management and elevated liver function tests. The patient has a history of thyroid disorder, for which her medication dosage was recently increased to 150mcg. She reports no adverse effects from the increased dosage and needs blood tests to monitor thyroid levels. She has not yet had an US of her liver. The patient also presents with elevated liver function tests, which have shown a slight increase since the last visit. She denies alcohol consumption but reports recent difficulty abstaining, experiencing symptoms such as sweating and insomnia when not drinking. Anxiety disorder is another concern, for which the patient was prescribed sertraline. She reports feeling strange and dizzy with the medication, leading to non-adherence. A switch to escitalopram has been planned to address these side effects. She was never contacted to connect to . Patient continues to smoke and is not ready to quit. [facility] Medical History Obesity (BMI 30.0-34.9) Cigarette smoker Agoraphobia with panic attacks Hypothyroid Elevated LFTs Bleeding hemorrhoid Alcohol abuse Enlarged liver Surgical History Previous section History of thyroidectomy Family History (Updated 03/22/25 @ 14:32 by Ирина Hurt MA) Mother No problems noted. Father No problems noted. Other Mental health disorder Substance abuse Social History Housing: Apartment Alcohol intake: current Alcohol intake frequency: 3 or more drinks per day Alcohol type: beer and wine Patient Tobacco Use Status: Current everyday Tobacco user Cigarette Packs Per Day: 10 e-Cigarette/Vaping Use: Currently Using service: No Current occupational status: unemployed Cognitive needs: No Hearing needs: No Vision needs: Yes (rx glasses) Questionnaire PHQ-9 Over the last 2 weeks, how often have you been bothered by any of the following problems? 1. Little interest or pleasure in doing things: not at all 2. Feeling down, depressed, or hopeless: nearly every day 3. Trouble falling or staying asleep, or sleeping too much: nearly every day 4. Feeling tired or having little energy: nearly every day 5. Poor appetite or overeating: not at all 6. Feeling bad about yourself - or that you are a failure or have let yourself or your family down: not at all 7. Trouble concentrating on things, such as reading the newspaper or watching television: not at all 8. Moving or speaking so slowly that other people could have noticed. Or the opposite - being so fidgety or restless that you have been moving around a lot more than usual: not at all 9. Thoughts that you would be better off or of hurting yourself in some way: not at all Total score: 9 Depression Screening Interpretation: Positive (Referral to psychology) Depression Screening Follow-up: New Medication prescribed Depression Screening Done: Yes Source: Developed by Drs. Man Waddell, Savana Daley, Nakul Carty and colleagues, with an educational freddy from [employer]. Thrive Questionnaire Date Thrive assessed: 03/22/25 I am a: Patient Within the past 12 months, did the food you bought not last and you didn't have the money to get more?: Never true Within the past 12 months, did you worry whether your food would run out before you got money to buy more?: Never true Do you have trouble paying for medicines?: No Do you have trouble getting transportation to medical appointments?: No Do you have trouble paying your heating and electricity bill?: No Do you have trouble taking care of your child, family member or friend?: No Do you have trouble with day-to-day activities such as bathing, preparing meals, shopping, managing finances, etc.?: No Are you currently unemployed and looking for a job?: No Are you interested in more education?: No THRIVE Score: 0 AUDIT C Alcohol Use Questionnaire (AUDIT-C) 1. How often do you have a drink containing alcohol?: Monthly or less 2. How many drinks containing alcohol do you have on a typical day when you are drinking?: 1 or 2 3. How often do you have six or more drinks on one occasion?: Less than monthly Total Score: 2 SHANNON-7 AMB Questionnaire SHANNON-7 Date SHANNON - 7 assessed: 03/22/25 Feeling nervous, anxious, or on edge: 0 = Not at all Not being able to stop or control worryin = Not at all Worrying too much about different things: 0 = Not at all Trouble relaxin = Not at all Being so restless that it is hard to sit still: 0 = Not at all Becoming easily annoyed or irritable: 0 = Not at all Feeling afraid as if something awful might happen: 0 = Not at all Total SHANNON-7 score (0-4 normal; 5-9 mild; 10-14 moderate; 15-21 severe): 0 Source: Developed by Drs. Man Waddell, Savana Daley, Nakul Carty and colleagues, with an educational freddy from [employer]. Review of Systems Narrative CONSTITUTIONAL Denies problems with increased thyroid dosage No weight loss HEAD/NECK Negative EAR/NOSE/MOUTH/THROAT Negative RESPIRATORY Negative CARDIOVASCULAR Negative GASTROINTESTINAL elevated LFTs MUSCULOSKELETAL Negative NEUROLOGICAL Negative PSYCHIATRIC Anxiety Reports feeling strange and dizzy with sertraline, leading to non-adherence Physical exam (Primary Care) Vital Signs: Last Vital Signs Temp 97.7 F 03/22/25 14:23 Pulse 94 03/22/25 14:23 BP 120/82 03/22/25 14:23 Pulse Ox 98 03/22/25 14:23 Oxygen Delivery Method Room Air 03/22/25 14:23 BMI result Body Mass Index 33.5 GENERAL Well developed, obese, in no apparent distress HEENT Head-Normocephalic Neck- Supple, No lymphadenopathy, thyroid WNL RESPIRATORY Normal I:E, Clear to auscultation CARDIOVASCULAR Regular, rate and rhythm, No murmurs or rubs GASTROINTESTINAL Soft, nontender, normal bowel sounds, no masses NEUROLOGICAL Gait normal PSYCHIATRIC Oriented to person, place and time Mood and affect -anxious Appearance WNL Speech WNL Thought processes WNL Tobacco/Smoking Status: Tobacco use Status Tobacco use date assessed 03/22/25 03/22/25 14:32 Patient Tobacco Use Status Current everyday Tobacco 03/22/25 14:32 e-Cigarette/Vaping Use Currently Using 03/22/25 14:32 PHQ-9: PHQ-9 Score PHQ-9: Total score 9 03/22/25 14:32 Depression Screening Interpretation: Positive (Referral to psychology) Depression Screening Follow-up: New Medication prescribed Thrive Assessment: Date of Thrive Assessment Date Thrive assessed 03/22/25 03/22/25 14:32 Coding Level of Care Code Established Pt Est Pt Level 4 (40930) Patient Type Established Diagnoses Elevated LFTs R79.89 Agoraphobia with panic attacks F40.01 Postoperative hypothyroidism E89.0 Hypothyroidism type: postoperative Cigarette smoker F17.210 Time Spent (min) 35 Comment Time was spent on Chart review, medication reconciliation, H&P, Patient education, orders Assessment & Plan Assessment & Plan (1) Elevated LFTs: Code(s): R79.89 - Other specified abnormal findings of blood chemistry Category: Medical Plan: The patient will undergo a follow-up ultrasound to assess liver status. Behavioral health consultation is recommended to address potential alcohol use issues. Patient to follow up in 2 months or sooner if symptoms persist or worsen. (2) Agoraphobia with panic attacks: Code(s): F40.01 - Agoraphobia with panic disorder Category: Medical Plan: The patient will switch from sertraline to escitalopram due to adverse effects experienced with the former. The patient is advised to take the medication at night to minimize side effects. Will resubmit referral for psychology. Patient to follow up in 2 months or sooner if symptoms persist or worsen. (3) Hypothyroid: Code(s): E03.9 - Hypothyroidism, unspecified Category: Medical Qualifiers: Hypothyroidism type: postoperative Qualified Code(s): E89.0 - Postprocedural hypothyroidism Plan: The patient will continue with the current thyroid medication dosage, as no adverse effects have been reported. Blood tests will be repeated to ensure thyroid levels remain within the desired range. Patient to follow up in 2 months or sooner if symptoms persist or worsen. (4) Cigarette smoker: Code(s): F17.210 - Nicotine dependence, cigarettes, uncomplicated Category: Social Hx Plan: Patient is smoking cigarettes daily. We discussed health risks associated with cigarette smoking. Patient is not interested in quitting smoking at this time but was advised to cut back. Plan I discussed with the patient the need to follow up on thyroid and liver function tests. We agreed to switch her anxiety medication from sertraline to escitalopram due to side effects. I recommended a behavioral health consultation to address potential alcohol use issues and scheduled a follow-up ultrasound for liver assessment. Orders: Orders TSH reflex Free T4 Today Z79.899 - Other ad terminal makeup operator (current) drug therapy US abdomen limited Today F10.10 - Alcohol abuse, uncomplicated, R79.89 - Other specified abnormal findings of blood chemistry Comprehensive Met. Panel Today R79.89 - Other specified abnormal findings of blood chemistry Referrals Psychology Referral F40.01 - Agoraphobia with panic disorder Medications: New escitalopram oxalate 5 mg PO DAILY 90 tabs 0RF for anxiety Discontinued sertraline take at bedtime Discontinued Reason: Doctor's Order 25 mg PO DAILY 60 tabs 0RF anxiety Patient Instructions: - Continue current thyroid medication and monitor for any side effects. - Complete blood work today and follow up with ultrasound as scheduled. - Start taking escitalopram at night and report any side effects. - Attend behavioral health consultation when scheduled.
--- OUTSIDE RECORDS SUMMARY | 2025-03-22 18:34 | XMS_ITS | Clinical Summary ---
Author Organization [facility] Address [address] [address] Phone Care Team Providers Care Short Order Cook Name Role Phone Pcp, Unknown Primary Care [...] Personal/Family Self [address] [place] [address] [employer] [facility] * Guarantor: Nelda Price Account Type Relation to Patient Date of Phone Billing Address Personal/Family Self 1970 [address] [place] [address] [employer] [facility] * Guarantor: Nelda Price Account Type Relation to Patient Date of Phone Billing Address Personal/Family Self [address] [place] [address] [facility] Care Teams Short Order Cook Relationship Specialty Start Date End Date Pcp, Unknown PCP - General 05/24/23 Additional Source Comments The information contained in this document represents components of the legal health record. It is not the complete legal health record.[facility]
== END 2025-03-22 14:55 | disposition home or self-care (01) ==
LOC: HO.HMCHD 14:12
PROVIDERS: PCP Physician Assistant Medical; Visit Provider Physician Assistant Medical
DX: R79.89 Other specified abnormal findings of blood chemistry (principal); F40.01 Agoraphobia with panic disorder; E89.0 Postprocedural hypothyroidism; F17.210 Nicotine dependence, cigarettes, uncomplicated

== ENCOUNTER 2025-03-22 14:12 | Outpatient (REF) | payer OTHER, SELFPAY ==
[2025-03-22 16:53] LABS: Alanine Aminotransferase 159 U/L (0-31); Albumin Level 3.2 g/dL (3.5-5.0); Alkaline Phosphatase 182 U/L (39-117); Anion Gap 10 (12-20); Aspartate Amino Transferase 277 U/L (5-31); Blood Urea Nitrogen 9 mg/dL (9-16); Calcium 8.4 mg/dL (8.4-10.2); Carbon Dioxide 24 mmol/L (22-29); Chloride 110 mmol/L (96-108); Estimated Glomerular Filt Rate > 60; Potassium 3.8 mmol/L (3.3-5.1); Sodium 140 mmol/L (135-145); Total Protein 6.8 g/dL (6.5-8.0)
[2025-03-22 20:00] LABS: Free T4 (Free Thyroxine) 0.90 ng/dL (0.71-1.85)
== END 2025-03-22 14:13 | disposition home or self-care (01) ==
LOC: HO.LAB 14:12
PROVIDERS: PCP Physician Assistant Medical; Visit Provider Physician Assistant Medical
DX: E89.0 Postprocedural hypothyroidism (principal); F41.9 Anxiety disorder, unspecified; R79.89 Other specified abnormal findings of blood chemistry; F40.01 Agoraphobia with panic disorder; F10.10 Alcohol abuse, uncomplicated; F17.210 Nicotine dependence, cigarettes, uncomplicated; Z79.899 Other long term (current) drug therapy
CPT/HCPCS: 36415; 80053; 84439; 84443